=== PATIENT | female | born 1940 | race Caucasian/White ===

== ENCOUNTER → 2018-02-27 08:35 | Outpatient (CLI) | payer MEDICARE, OTHER, SELFPAY ==
--- NOTE | 2018-02-27 08:30 | DI.REPORT_ITS ---
SYMPTOM/DIAGNOSIS: RT TKA RIGHT KNEE, AND LONG LEG LENGTH: Comparison examination is 12/11/17. There are now post surgical changes of a right total knee replacement. The orthopaedic hardware appears in good position. No fractures identified. In the left knee there is marked narrowing of the medial femoral tibial joint space with flattening of the articular surfaces, subchondral sclerosis and osteophyte formation. There also is a varus deformity noted. Mild degenerative changes are seen of the right hip with joint space narrowing, subchondral sclerosis and sofia-articular spurring. The right lower extremity measures 87.2 cm The left lower extremity measures 85.8 cm. IMPRESSION: 1. Right TKR 2. Marked degenerative changes involving the left knee.
== END ==
PROVIDERS: PCP Nurse Practitioner; Visit Provider Physician Assistant
DX: Z47.1 Aftercare following joint replacement surgery (principal); Z96.651 Presence of right artificial knee joint; M21.962 Unspecified acquired deformity of left lower leg; M17.12 Unilateral primary osteoarthritis, left knee
CPT/HCPCS: 73560; 77073

== ENCOUNTER 2018-03-20 14:30 | Outpatient (RCR) | payer MEDICARE, OTHER, SELFPAY ==
--- NOTE | 2018-03-06 08:49 | PTTR_ITS ---
DATE: 03/06/18 SUBJECTIVE: Deidre states that her knee has been feeling great. She followed by with Dr. Pierre last week and scheduled her (L) knee replacement for April 02. She is performing her exercises daily and feels that they are helping. She has not used her walker since her last session and she has been walking around more at home stating that she has been going down to the barn and watching her grandchildren again. She states that she does feel a little unsteady walking down hill and tends to use a walking stick when she does. She also reports that she feels this is more due to her (L) knee than her (R). OBJECTIVE: Therapeutic procedures ([id number]). We review pt HEP and she required cues for appropriate technique with SLR which we progressed to a 10 sec hold with slow eccentric lowering and no rest periods between. She was instructed in progressed closed chain strengthening and balance retraining activities which can be found in scanned documents. She does require significant verbal and tactile cues for appropriate completion and squatting activities but with good carry over. (R) knee ROM Allows 119* flexion without pain. Direct treatment time: 25 minutes Total treatment time: 25 minutes ASSESSMENT/ PLAN: Will follow up in 2 weeks for re-evaluation and progression. Pt is doing excellent for 3 weeks post op. And we will plan to have her continue with a fairly (I) program as she awaits her (L) knee replacement in March.
--- NOTE | 2018-03-20 14:30 | PTDS_ITS ---
Date: March 20 Referring: Jori Pierre MD Diagnosis: S/p R TKA 02/12/18 PT Dx: Same Treatment dates: 02/22/18 to 03/20/18 Subjective: History of Present Illness: Deidre states that her R knee has been feeling great. She has been doing her exercises regularly and feels that her knee is doing excellent. She states she has been able to kneel on the floor with only significant difficulty. She has resumed care taking for her grand children, denies difficulty with stairs. She is looking forward to her L knee replacement in 2 weeks. Standardized Measures: [] Objective: Posture: Patient continues to demonstrate significant L genu varus. She lacks terminal knee extension on the R. Gait: Continued antalgia related to decreased stance time on the L, patient also demonstrates hyper extension of the L knee during stance phase. ROM: Patient demonstrates 0 to 125 degrees of R knee flexion, denying pain. Strength: Good functional quad strength and patient can demonstrate SLR without extension lag and squatting activities without difficulty. Treatment: Treatment today consisted of review of patient's HEP. She was instructed in passive hangs for knee extension to facilitate continued extension in the presence of functional leg length discrepancy due to severe osteoarthritis in her L knee. She has been encouraged to continue with her HEP. Therapeutic Procedure [id number] Treatment Time: 15 mins Assessment: Patient is a 78 year old female participating in PT services for rehabilitation following a R TKA. She is now 5 weeks post op and has demonstrated excellent improvements in functional mobility and comfort. Her ROM is full and she demonstrates good functional strength. 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 At this point she is appropriate for discharge to an independent HEP. I anticipate she will require a 2nd round of PT intervention after her next surgery. G-Codes: Patient demonstrates improvements in mobility, walking and moving around with projected status of [id number] based on clinical judgement with discharge status of [id number] STG: __6__ weeks. 1. (R) knee ROM 0-120* (MET) 2. Pt able to resume care for her grandchildren (MET) LTG: __12__ weeks. 1. Reciprocal stair management (MET) 2. Improve overall function as indicated by LEFS score of less than 10% deficit. (Not assessed at today's visit) Plan: Discharge to [facility] as patient awaits L TKA 04/02/18. SS/dl *Dr. Pierre, please sign this discharge summary if you are in agreement with this plan. cc: Jori Pierre MD
== END 2018-03-29 23:59 | disposition home or self-care (01) ==
LOC: PT 14:30
PROVIDERS: PCP Nurse Practitioner; Referring Provider Physician Assistant; Visit Provider Physician Assistant
DX: Z47.1 Aftercare following joint replacement surgery (principal); Z96.651 Presence of right artificial knee joint
CPT/HCPCS: 97110

== ENCOUNTER → 2018-03-29 10:09 | Outpatient (CLI) | payer MEDICARE, OTHER, SELFPAY ==
[2018-03-29 11:23] LABS: HCT 35.4 % (36.0-46.0); HGB 11.6 g/dL (12.0-15.5); Mean Corp. HGB Concentration 32.8 g/dL (32.0-36.0); Mean Corpuscular Hemoglobin 30.1 pg (27.0-33.0); Mean Corpuscular Volume 91.7 fL (80-95); Mean Platelet Volume 9.6 fL (8.0-11.0); Platelet Count 298 x1000/uL (130-400); RBC 3.86 m/cumm (4.00-5.20); RBC Distribution Width 13.5 % (11.7-14.6); White Blood Cell Count 7.24 k/cumm (4.4-10.8)
[2018-03-29 12:37] LABS: Anion Gap 7.7 mmol/L (3-11); BUN 16 mg/dL (7-18); CO2 27.3 mmol/L (21.0-32.0); CREATININE 0.86 mg/dL (0.55-1.02); Calcium 8.7 mg/dL (8.5-10.1); Chloride 102 mmol/L (98-107); Glucose 85 mg/dL (70-100); Potassium 4.3 mmol/L (3.5-5.1); Sodium 137 mmol/L (136-145)
== END ==
PROVIDERS: PCP Nurse Practitioner; Visit Provider Student in an Organized Health Care Education/Training Program
DX: Z01.818 Encounter for other preprocedural examination (principal); M25.562 Pain in left knee
CPT/HCPCS: 36415; 80048; 85027

== ENCOUNTER → 2018-04-02 10:28 | Outpatient (BNVA) | payer MEDICARE, SELFPAY ==
[2018-04-02 15:52] VITALS: BP 129/78; PULSE 70; RESP 18; TEMP 36.3; O2SAT 95
--- NOTE | 2018-04-02 16:02 | PT.INIE ---
PT Notes Date: 04/02/18 Referring Doctor: Jori Pierre PT Orders: PT Consult s/p L TKA Precautions: WBAT L LE PATIENT PROFILE/ADMITTING DIAGNOSIS: Pt is a 78yr old female s/p left total knee arthroplasty by Dr. Pierre 04/02/18 PMHX: degenerative joint disease bilateral knees, hernia repair Social History/Home Situation: Lives in a house with her daughter, 4 steps with railing to enter, no steps inside. Baseline mobility independent gait with no device, independent with ADLS Equipment owned/DME: FWW, commode SUBJECTIVE: Pt lying in bed, agreeable to PT consult. Reports feeling lightheaded and nausous. OBJECTIVE: General Observation: IV R UE, taylor catheter, cryocuff L knee, sylvester wrap L LE Mental Status: A& O x3 Pain: no c/o pain BED MOBILITY/TRANSFERS: Supine-sit: HOB 30 independent Sit-stand: SBA with FWW Stand-sit: SBA sit-supine: HOB flat, independent GAIT: SBA with FWW 4 side steps at bedside, WBAT R LE, gait limited by lightheadedness/nausea. Pt back to bed after standing at bedside THEREX Pt instructed in LE therex program, Performed ankle pumps, hip flexion x 10 reps LAQ x 10reps BALANCE: Static sitting normal Dynamic Sitting normal Static Standing fair Dynamic Standing fair SPECIAL TESTS: Mobility Limitations Standardized Measure [facility] AM -PAC ?6 clicks? Basic Mobility Inpatient Short Form: raw score: 18 standardized score: 43.63 CMS score: 46.58% CMS modifier: CK INFORMED CONSENT/EDUCATION: Pt instructed in purpose of PT Consult and plan of care ASSESSMENT: Pt is a 78yr old female s/p left total knee arthroplasty by Dr. Pierre 04/02/18 in setting of degenerative joint disease bilateral knees. Patient presents with clinical signs and symptoms consistent with post op day 1 TKA as demonstrated by the following impairment level findings: decreased ROM L knee, decreased quad strength L LE, decreased strength with standing transfers and gait requiring FWW for gait stability post operatively due to quad weakness left and right LE's and decreased static and dynamic standing balance. Pt will benefit from skilled therapy intervention for progressive strengthening and mobility training. Impairments are contributing to the following functional limitations: AMPAC score CMS score: 46.58% Patient is assessed as a * Moderate 79062 complexity based on the following: History: s/p L TKA 04/02/18, s/p right total knee arthroplasty by Dr. Pierre 02/12/18 in setting of degenerative joint disease bilateral knees. Examination: decreased ROM L knee, decreased quad strength L LE, decreased strength with standing transfers and gait requiring FWW for gait stability post operatively due to quad weakness left and right LE's and decreased static and dynamic standing balance. Presentation: evolving Decision Making: AMPAC score CMS score: 46.58% GOALS Goals x1 week 1. Supine-sit: independent 2. Sit-Supine: independent 3. Sit-Stand: supervision with FWW 4. Stand-sit: supervision 5. Bed-chair SBA with FWW 6. Chair-bed SBA with FWW 7. Gait SBA with FWW 75ftx2, WBAT L LE 8. Stairs: up/down 4 steps with railing, SBA W BAT L LE 9. I with home exercise program for L TKA PLAN OF CARE/TREATMENT PLAN: 1-2x/day, 7 days/ week x 1 week Plan of care has been reviewed with the BALE STACKER providing the service under Physical therapy direction. Initiate physical therapy intervention for strengthening, bed mobility, transfers, gait, stairs, balance training, use of assistive device. DISCHARGE RECOMMENDATIONS Home, has all DME TREATMENT TIME/MINUTES/CODES 24 min IE 1600 G Codes in the area mobility of walking and moving around: current status [id number] projected status GP [id number] . Discharge status (if discharging) GP [id number]__[id number] iwfwe on AMPAC score CMS score: 46.58% Lisha Peralta PT Intake Vital Signs 04/02/18 15:52 BP 129/78 Respiration 18 Pulse 70 Temp 36.3 C L Temp Source Tympanic Pulse Oximetry (%) 95 Oxygen Flow Rate 0
--- NOTE | 2018-04-02 16:07 | IN_ITS ---
PT Notes Date: 04/02/18 Referring Doctor: Jori Pierre PT Orders: PT Consult s/p L TKA Precautions: WBAT L LE PATIENT PROFILE/ADMITTING DIAGNOSIS: Pt is a 78yr old female s/p left total knee arthroplasty by Dr. Pierre 04/02/18 PMHX: degenerative joint disease bilateral knees, hernia repair Social History/Home Situation: Lives in a house with her daughter, 4 steps with railing to enter, no steps inside. Baseline mobility independent gait with no device, independent with ADLS Equipment owned/DME: FWW, commode SUBJECTIVE: Pt lying in bed, agreeable to PT consult. Reports feeling lightheaded and nausous. OBJECTIVE: General Observation: IV R UE, taylor catheter, cryocuff L knee, sylvester wrap L LE Mental Status: A& O x3 Pain: no c/o pain BED MOBILITY/TRANSFERS: Supine-sit: HOB 30 independent Sit-stand: SBA with FWW Stand-sit: SBA sit-supine: HOB flat, independent GAIT: SBA with FWW 4 side steps at bedside, WBAT R LE, gait limited by lightheadedness/nausea. Pt back to bed after standing at bedside THEREX Pt instructed in LE therex program, Performed ankle pumps, hip flexion x 10 reps LAQ x 10reps BALANCE: Static sitting normal Dynamic Sitting normal Static Standing fair Dynamic Standing fair SPECIAL TESTS: Mobility Limitations Standardized Measure [facility] AM -PAC ?6 clicks? Basic Mobility Inpatient Short Form: raw score: 18 standardized score: 43.63 CMS score: 46.58% CMS modifier: CK INFORMED CONSENT/EDUCATION: Pt instructed in purpose of PT Consult and plan of care ASSESSMENT: Pt is a 78yr old female s/p left total knee arthroplasty by Dr. Pierre 04/02/18 in setting of degenerative joint disease bilateral knees. Patient presents with clinical signs and symptoms consistent with post op day 1 TKA as demonstrated by the following impairment level findings: decreased ROM L knee, decreased quad strength L LE, decreased strength with standing transfers and gait requiring FWW for gait stability post operatively due to quad weakness left and right LE's and decreased static and dynamic standing balance. Pt will benefit from skilled therapy intervention for progressive strengthening and mobility training. Impairments are contributing to the following functional limitations: AMPAC score CMS score: 46.58% Patient is assessed as a * Moderate 45501 complexity based on the following: History: s/p L TKA 04/02/18, s/p right total knee arthroplasty by Dr. Pierre in setting of degenerative joint disease bilateral knees. Examination: decreased ROM L knee, decreased quad strength L LE, decreased strength with standing transfers and gait requiring FWW for gait stability post operatively due to quad weakness left and right LE's and decreased static and dynamic standing balance. Presentation: evolving Decision Making: AMPAC score CMS score: 46.58% GOALS Goals x1 week 1. Supine-sit: independent 2. Sit-Supine: independent 3. Sit-Stand: supervision with FWW 4. Stand-sit: supervision 5. Bed-chair SBA with FWW 6. Chair-bed SBA with FWW 7. Gait SBA with FWW 75ftx2, WBAT L LE 8. Stairs: up/down 4 steps with railing, SBA W BAT L LE 9. I with home exercise program for L TKA PLAN OF CARE/TREATMENT PLAN: 1-2x/day, 7 days/ week x 1 week Plan of care has been reviewed with the CRIPPLE WORKER providing the service under Physical therapy direction. Initiate physical therapy intervention for strengthening, bed mobility, transfers, gait, stairs, balance training, use of assistive device. DISCHARGE RECOMMENDATIONS Home, has all DME TREATMENT TIME/MINUTES/CODES 24 min IE 1600 G Codes in the area mobility of walking and moving around: current status [id number] projected status GP [id number] . Discharge status ( if discharging) GP [id number]__CL wutxs on AMPAC score CMS score: 46.58% Lisha Peralta PT Intake Vital Signs 3 l l l l 04/02/18 15:52 l l BP 129/78 l l Respiration 18 l l Pulse 70 l l Temp 36.3 C L l l Temp Source Tympanic l l Pulse Oximetry (%) 95 l l Oxygen Flow Rate 0
== END ==
PROVIDERS: PCP Nurse Practitioner; Visit Provider Student in an Organized Health Care Education/Training Program
DX: M17.12 Unilateral primary osteoarthritis, left knee (principal); Z96.652 Presence of left artificial knee joint; Z96.651 Presence of right artificial knee joint; M21.162 Varus deformity, not elsewhere classified, left knee

== ENCOUNTER 2018-04-02 13:42 | Inpatient (IN) | payer MEDICARE, OTHER, SELFPAY ==
[2018-04-02] VITALS (10 sets, daily range): BP systolic 107–139; BP diastolic 68–84; PULSE 65–79; RESP 11–19; TEMP 36–36.9; O2SAT 95–99
[2018-04-02] MEDS: Lactated Ringers 1,000 ML 80 ML IV ×4 (09:57→22:55)
[2018-04-02] MEDS: Gabapentin 300 MG CAP PO (10:04)
[2018-04-02] MEDS: Acetaminophen 500 MG TAB 1000 MG PO (10:04)
[2018-04-02] MEDS: Celecoxib 200 MG CAP 400 MG PO (10:04)
[2018-04-02] MEDS: Ketorolac 30 MG/ML VIAL (13:07)
[2018-04-02] MEDS: Bupivacaine 0.25% Pres-Free 30 ML VIAL 60 ML (13:07)
[2018-04-02] MEDS: Normal Saline 50 ML (13:07)
[2018-04-02] MEDS: Bupivacaine 0.5% Pres-Free 30 ML VIAL (13:53)
--- NOTE | 2018-04-02 18:54 | W.PM.OP ---
Date of service: 04/02/18 Time of Service: 14:00 Operative Note Date of procedure: 04/02/18 Pre-op diagnosis: Left Knee Arthritis Post-op diagnosis: same Procedure: Left Total Knee Arthroplasty with Intraoperative Navigation Surgeon: Jori Pierre Sorting Grapple Operator: Robyn Higginbotham Anesthesia: regional and spinal Estimated blood loss (mL): 400 Pathology: none sent Tourniquet time (min): 41 Complications: None Patient was transported to: PACU Patient's condition: stable Implants: 1. Depuy Attune Posterior Stabilized Femoral Component, Size 6 2. Depuy Attune Fixed Platform Tibial Component, Size 4 3. Depuy Attune 6 x 8 mm fixed, Stabilized Poly 4. Depuy Attune Patellar Component, Size 35 mm Indications: I have seen Deidre in clinic for symptoms of knee arthritis, confirmed with radiographic findings. She has exhausted nonoperative methods and was having significant limitations in daily function and desired better function and less pain. I discussed the technical details of a knee replacement. I explained the risks of the procedure to include, but not limited to, bleeding, infection, pain, stiffness, fracture, damage to nerves and vessels, damage to muscles and tendons, loosening, need for repeat procedure, blood clot and cardiopulmonary demise. Despite these risks, she elected to proceed. Findings: There was significant signs of arthritis throughout the knee. All 3 compartments were involved. There is large deformity and osteophyte seen throughout. Procedure Description: Deidre was greeted in the preoperative holding area where the correct side was identified and marked. The consent was reviewed with the patient and signed. The history and physical was updated. All questions were answered. Preoperative mediacations were administered: Acetaminophen 1000mg, Celebrex 400mg, Gabapentin 300mg, and Oxycontin 10mg. An adductor canal block was then administered by the anesthesia team in the PACU. She was taken back to the operating room. A spinal anesthestic was then administered. The patient was placed into the supine position on the operating room table. A nonsterile tourniquet was placed high onto the leg but only used for cementing. Posts were placed for positioning during the procedure. All bony prominences were well padded. Prophylactic antibiotics in the form of Cefazolin were administered. 1g of Tranxemic Acid was given intravenously within 30 minutes of incision. The left leg was then prepped with Chloraprep and draped in a standard fashion with impervious stockinette and extremity drape with Iodine impregnated skin protection. A timeout to confirm correct identity, side and site, procedure, allergies, anesthesia, and medical concerns was performed. With the knee in some flexion, a midline incision was made overlying the knee. Full thickness skin flaps were raised once the extensor mechanism was encountered. These were raised medially and laterally. Any bleeding was controlled with electrocautery. Once the extensor mechanism was fully exposed, a medial parapatellar arthrotomy was performed in a flexed position. All bleeding from the arthrotomy and the geniculate arteries was coagulated. A medial subperiosteal peel was performed with electrocautery to the midcoronal plane. Due to the significant varus deformity the entire medial tibial plateau was exposed. The fat pad was removed while keeping the patellar tendon protected. The anterior distal femur synovium was removed for later visualization. The ACL and PCL were resected and the anterior horn of the lateral meniscus was transected. The knee was then flexed with the patella everted. Large osteophytes from the tibia were removed. Large osteophytes from the femur were removed. A single starting pin was then placed 1cm anterior to the PCL insertion and the notch in the direction of the femoral head. The OrthoAlign device was applied over the pin. It was oriented to be in line with the epicondylar axis and the trochlear groove. It was then pinned into place. The navigation computer was then turned on and calibrated. The distal femur cut was set at 0 degrees varus/valgus and 2.5 degrees flexion. The distal femur cutting guide then was positioned for a 9mm cut. The distal femur was cut with an oscillating saw while protecting the soft tissues. The tibia was then addressed. The OrthoAlign device was placed over the tibial tubercle and medial tibia and secured into position. Once again, OrthoAlign was calibrated and then set for a 0.5? varus cut and 3 degrees of posterior slope. With this locked into position, the cut thickness stylus was used to assess cut thickness. The medial side, most involved side, was set for a 2mm cut. This was then held in position and pinned into place with 2 additional pins and a cross pin for stability. The medial and lateral collateral ligaments were protected and the cut was performed. With this completed, it was assessed and noted to be of appropriate dimensions. The guide and OrthoAlign was removed. A spacer block was inserted and the knee was brought into extension. The 6 mm spacer block provided full extension, without hyperextension. There was some asymmetric laxity laterally when compared to the medial side. The MCL was extremely tight. The entire medial periphery of the tibial plateau was released and all osteophytes were removed. Using an 11 blade I then pie crusted the MCL to help relax the medial side. With an [address], I have stability of both the medial and lateral collateral ligaments. The pins from the femur and the tibia were then removed. The distal femur was then sized. The anterior stylus was placed onto the lateral ridge of the anterior femur. This indicated a size 6 femur. The external rotation of the guide was adjusted to 7? to match the epicondylar axis, perpendicular to Emmett?s line. The 4-in-1 cutting guide was the placed. The posterior medial femur cut was evaluated and appeared of good thickness. The spacer block was inserted underneath the cutting guide and stability was confirmed in 90 degrees of flexion. An melissa wing was used to confirm appropriate position of the anterior cut to avoid notching. This cutting guide was ensured to be flush on the cut surface and then pinned into place with headed pins. While protecting the soft tissues, quad tendon, and collateral ligaments, the anterior and posterior cuts were performed with a saw. The central two pins were removed and the posterior and anterior chamfers were cut next. The notch-cutting guide was placed. This was pinned to lateralize the femoral component as much as possible while keeping it flush on the cut surface. This was then pinned into position. A reciprocating saw was used to make the notch cut. A rasp smoothed the cut surfaces. A trial posterior stabilized femoral component was then inserted, impacted down to the cut surfaces, and the lug holes were drilled. A provisional trial tibial component was placed and the knee was brought through range of motion. There was noted to be excellent extension and flexion. There was no significant instability. The patella was tracking without thumbs. The tibial cut surface was fully exposed. The medial and lateral menisci were removed. The tibia was then sized as a 4. The tibia had been previously marked during trialing to correspond to the center of the tibial component to help with rotation. The trial was aligned to this mayela, approximately rotated to the medial 1/3rd of the tibial tubercle. The trial was pinned into place. The tibia was prepared with a reamer and a keel punch. The knee was then brought into extension and the patella was measured as 26 mm. Using the patellar clamp and cut guide, this was resected to a flat surface with at least 13mm of thickness remaining. The size 35 mm patella fit the best. This was oriented and then clamped into position. The lugs were drilled. The trial components were removed. The final components, except for the polyethylene were opened on the back table. The periosteal and capsular tissues around the knee were then systematically injected with a periarticular cocktail consisting of 50cc 0.25% Marcaine, 30mg Ketorolac, 20cc of Exparal and 50cc of injectable saline. The tourniquet was then inflated to 275mmHg. The knee was thoroughly irrigated with a pulse lavage and dried. On the back table, with the implants opened, the cement was mixed. 2 batches of antibiotic laden cement were prepared with vacuum assistance. After the cement was ready a small amount was placed on to the back side of the tibial component at the keel. A small amount was placed onto the posterior flange of the femur. Cement was manual pressurized and impregnated into the cut surface of the tibia. The tibial component was then inserted into the cut surface and impacted into position. Excess cement was removed and the component was reimpacted. Again, excess cement was removed and our attention was then turned to the femur. The femoral cut surface was once again dried and cement was manually impacted into the cut surface. The femoral component was lined with the lug holes and impacted. Excess cement was removed. It was ensured to be down against the cut surface. The trial polyethylene was then inserted and the leg was brought out into full extension for the duration of the cement curing process, approximately 15min. Cement was lastly manually impacted into the cut surface of the patella and the patellar button was clamped into position and held. During this process attention was turned to the gutters of the knee and for all interfaces for any excess cement. After the cement had finally cured, approximately 15min, the clamp was removed from the patella and the knee was taken through range of motion. A size 8 mm polyethylene component provided the best range of motion and stability with less than 2mm gapping with medial and lateral stress and full extension without significant hyperextension. The patella was tracking with a no-thumbs technique. The trial poly was removed and once again the knee was checked for any loose, excess, or errant cement. The poly component was then inserted and impacted into position after cleaning and drying the tibial tray. The capsule was then reapproximated with a No. 1 Vicryl at multiple locations. The capsule was finally closed with a No. 2 Stratafix, barbed suture. The tourniquet was then released and the arthrotomy appeared watertight. The second dosing of 1g TXA was started. Deep tissues were then reapproximated with 0 Vicryl and 2-0 Vicryl. The skin was closed with a running 3-0 Monocryl in a subcuticular fashion. This was reinforced with skin glue. A Mepilex silver dressing was applied along with a [id number] JAI wrap. A CryoCuff was applied. Deidre was transferred to the hospital bed without difficulty an suffering no apparent complication. She has a good prognosis. Physical therapy will start today and without restrictions, weight-bearing as tolerated. Aspirin 81mg BID will be used for DVT prophylaxis.
[2018-04-02] MEDS: Celecoxib 100 MG CAP 200 MG PO (20:01)
[2018-04-02] MEDS: Aspirin E.C. 81 MG TABEC PO (20:02)
[2018-04-03] VITALS: BP 100/65; PULSE 73; RESP 18; TEMP 36.5; O2SAT 97
[2018-04-03] MEDS: traMADol 50 MG TAB PO (02:00)
[2018-04-03 03:55] VITALS: BP 106/67; PULSE 71; RESP 16; TEMP 37.1; O2SAT 97
[2018-04-03 07:09] LABS: HCT 28.1 % (36.0-46.0); HGB 9.2 g/dL (12.0-15.5); Mean Corp. HGB Concentration 32.7 g/dL (32.0-36.0); Mean Corpuscular Hemoglobin 30.2 pg (27.0-33.0); Mean Corpuscular Volume 92.1 fL (80-95); Mean Platelet Volume 9.4 fL (8.0-11.0); Platelet Count 243 x1000/uL (130-400); RBC 3.05 m/cumm (4.00-5.20); RBC Distribution Width 13.2 % (11.7-14.6); White Blood Cell Count 11.19 k/cumm (4.4-10.8)
[2018-04-03 07:21] LABS: Anion Gap 4.1 mmol/L (3-11); BUN 12 mg/dL (7-18); CO2 27.9 mmol/L (21.0-32.0); CREATININE 0.93 mg/dL (0.55-1.02); Calcium 7.9 mg/dL (8.5-10.1); Chloride 104 mmol/L (98-107); Estimated GFR 58.46 (mL/min/1.73m2); Glucose 92 mg/dL (70-100); Sodium 136 mmol/L (136-145)
[2018-04-03 07:37] VITALS: BP 115/69; PULSE 66; RESP 16; TEMP 36; O2SAT 97
[2018-04-03] MEDS: Normal Saline Flush 10 ML SYR IV (08:00)
--- NOTE | 2018-04-03 08:06 | PDOC.CMIN ---
- If Service Date Differs Date of service: 04/03/18 Time of Service: 08:06 Care Management Initial Assess REASON FOR HOSPITALIZATION:: Left Knee DJD. PAST MEDICAL HISTORY/PAST SURGICAL HISTORY:: Osteoarthritis. PREVIOUS FUNCTIONAL STATUS/SOCIAL/FAMILY SUPPORTS:: Deidre lives with her daughter and son in law and their two young children in a private home in [place]. Her from brain cancer 3 years ago. She has 12 adult children, several of whom live locally and are very supportive. 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 CURRENT FUNCTIONAL STATUS:: Deidre was lying in bed when CM visted this morning. She is engaged in conversation, is talkative and makes good eye contact. Deidre reports that she is feeling great and is ready to go home. She had surgery on her right knee in January and reports that she knows what to expect. ontact and is talkative. She reports that she is independent with ADLs and transporation and that she has a great support system with her many children and friends. Deidre denies concerns about returning home and reports that she has all necessary equipment that is left over from pt's that she cared for previously in her home and her past surgery. ADVANCE DIRECTIVES:: On file at [facility]. Has patient been provided with information about the portal?: No Did the patient sign up for the portal?: No CODE STATUS:: Full Code INSURANCE COVERAGE / FINANCIAL ISSUES:: Medicare, [employer]. CURRENT HOME/COMMUNITY SERVICES/EQUIPMENT:: No current services. Deidre has a walker and commode at home. No additional equipment needed. PRIMARY CARE PHYSICIAN:: Tiffany Baumann. POTENTIAL DISCHARGE NEEDS:: Follow up appointment with MD. Outpatient PT services. PATIENT/FAMILY EDUCATION NEEDS:: Discharge education, any limitations and follow up plan of care. Ask Me Three discussion. ANTICIPATED BARRIERS TO DISCHARGE:: No anticipated barriers to discharge. TRANSPORTATION:: Deidre will transport via private vehicle with her son-in-law, Emory. PLAN:: Deidre will discharge home when medically ready per MD. Anticipate pt will discharge home with no services, follow up appointment with MD and out patient PT. CM to continue to provide support, discharge planning and disposition. Readmission - Within the Past 30 Days Yes or No: N
--- NOTE | 2018-04-03 08:14 | INITIAL_ITS ---
- If Service Date Differs Date of service: 04/03/18 Time of Service: 08:06 Care Management Initial Assess REASON FOR HOSPITALIZATION:: Left Knee DJD. PAST MEDICAL HISTORY/PAST SURGICAL HISTORY:: Osteoarthritis. PREVIOUS FUNCTIONAL STATUS/SOCIAL/FAMILY SUPPORTS:: Deidre lives with her daughter and son in law and their two young children in a private home in [place]. Her from brain cancer 3 years ago. She has 12 adult children, several of whom live locally and are very supportive. 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 CURRENT FUNCTIONAL STATUS:: eDidre was lying in bed when CM visted this morning. She is engaged in conversation, is talkative and makes good eye contact. Deidre reports that she is feeling great and is ready to go home. She had surgery on her right knee in January and reports that she knows what to expect. ontact and is talkative. She reports that she is independent with ADLs and transporation and that she has a great support system with her many children and friends. Deidre denies concerns about returning home and reports that she has all necessary equipment that is left over from pt's that she cared for previously in her home and her past surgery. ADVANCE DIRECTIVES:: On file at [facility]. Has patient been provided with information about the portal?: No Did the patient sign up for the portal?: No CODE STATUS:: Full Code INSURANCE COVERAGE / FINANCIAL ISSUES:: Medicare, [employer]. CURRENT HOME/COMMUNITY SERVICES/EQUIPMENT:: No current services. Deidre has a walker and commode at home. No additional equipment needed. PRIMARY CARE PHYSICIAN:: Tiffany Baumann. POTENTIAL DISCHARGE NEEDS:: Follow up appointment with MD. Outpatient PT services. PATIENT/FAMILY EDUCATION NEEDS:: Discharge education, any limitations and follow up plan of care. Ask Me Three discussion. ANTICIPATED BARRIERS TO DISCHARGE:: No anticipated barriers to discharge. TRANSPORTATION:: Deidre will transport via private vehicle with her son-in-law , Emory. PLAN:: Deidre will discharge home when medically ready per MD. Anticipate pt will discharge home with no services, follow up appointment with MD and out patient PT. CM to continue to provide support, discharge planning and disposition. Readmission - Within the Past 30 Days Yes or No: N
[2018-04-03] MEDS: Aspirin E.C. 81 MG TABEC PO (08:16)
[2018-04-03] MEDS: Pantoprazole 40 MG TABCR PO (08:16)
[2018-04-03] MEDS: Lactobacillus Acidophilus CAP 1 CAP PO (08:16)
[2018-04-03] MEDS: Celecoxib 100 MG CAP 200 MG PO (08:16)
[2018-04-03] MEDS: Multivitamin w/Minerals TAB 1 TAB PO (08:17)
--- NOTE | 2018-04-03 08:17 | PDOC.CMDIS ---
- If Service Date Differs Date of service: 04/03/18 Time of Service: 08:17 LACE Index Scoring Tool - Questions: Length of Stay (in days): 2 Acuity (Admit via E.D.?): No E.D. Visits: 0 - Answers: Total Score: 2 Risk of Readmission: Low Risk Care Management Discharge Reason for Hospitalization: Left Knee DJD. Discharge Plan: Deidre will discharge home when medically ready per MD. Anticipate pt will discharge with outpatient PT services and will follow up with MD. She will transport via private vehicle with her son-in-law, Emory. Patient/Family Education Needs: Review discharge instructions and any limitations. Ask Me Three discussion.
--- NOTE | 2018-04-03 08:22 | PT.INDS ---
PT Notes Inpatient Physical Therapy Discharge Summary Date: 04/03/18 Dates of Service: 04/02/18-04/03/18 SUBJECTIVE: Pt lying in bed, states she walked 2 loops around the unit last night. She is eager to go home today. Agreeable to PT session prior to discharge. OBJECTIVE: General Observation: IV R UE, taylor catheter, cryocuff L knee, sylvester wrap L LE Pain: no c/o pain BED MOBILITY/TRANSFERS: Supine-sit: independent Sit-stand: independent with FWW Stand-sit: independent sit-supine: independent Bed-chair: independent with FWW GAIT: indepednent with FWW 70ftx2 WBAT R LE STAIRS Instructed in up/down 4 steps with right railing, independent WBAT R LE THEREX Pt instructed in LE therex program, Performed ankle pumps, hip flexion x 10 reps LAQ x 10reps BALANCE: Static sitting normal Dynamic Sitting normal Static Standing fair Dynamic Standing fair ASSESSMENT: Pt is a 78yr old female s/p left total knee arthroplasty by Dr. Pierre 04/02/18 in setting of degenerative joint disease bilateral knees. Patient was seen for 2 PT sessions. Progressed from SBA standing transfers to independent, from SBA gait with FWW 4 steps to independent gait with FWW 70ftx2, able to ascend/descend 4 steps independently. Pt has met therapy goals and is ready for discharge to home setting. GOALS Goals x1 week 1. Supine-sit: independent 2. Sit-Supine: independent 3. Sit-Stand: supervision with FWW 4. Stand-sit: supervision 5. Bed-chair SBA with FWW 6. Chair-bed SBA with FWW 7. Gait SBA with FWW 75ftx2, WBAT L LE 8. Stairs: up/down 4 steps with railing, SBA W BAT L LE 9. I with home exercise program for L TKA Pt met goals # 1-9 DISCHARGE RECOMMENDATIONS Home, has all DME TREATMENT TIME/MINUTES/CODES 24 min TAx1 TP x1 8:20 G Codes in the area mobility of walking and moving around:projected status GP [id number] . Discharge status (if discharging) GP [id number]__[id number]__ Lisha Peralta PT
--- NOTE | 2018-04-03 09:49 | DSE_ITS ---
Discharge Plan Discharge Details Reason For Visit: (L) KNEE DJD Admit Date/Time: 04/02/18 13:42 Admit Provider: Jori Pierre Attending Provider: Jori Pierre Primary Care Provider: Tiffany Baumann Disposition Patient Disposition: HOME Condition: Good Hosptial Course Hospital Course: Patient was admitted to the medical/surgical floor following the procedure. It was tolerated well without any notable medical, surgical, or anesthetic complications. Mobilization began postoperatively. The taylor catheter was removed and voiding spontaneously. Vitals were stable. Physical therapy worked with the patient and was cleared for discharge home. No acute medical issues. Home Meds and New Rx's Prescriptions: Continue omega-3 fatty acids 100 MG tablet,chewable 100 mg PO DAILY RF: 0 Lactobacillus acidophilus [Probiotic] 1 EACH capsule 1 ea PO DAILY RF: 0 [id number]-Nx-ghsn-minerals [Women's Daily Formula] 1 EACH tablet 1 ea PO DAILY RF: 0 aspirin 81 MG tablet,delayed release (DR/EC) 81 mg PO BID Qty: 80 RF: 0 pantoprazole 40 MG tablet,delayed release (DR/EC) 40 mg PO DAILY@0730 Qty: 30 RF: 0 celecoxib [Celebrex] 100 MG capsule 100 mg PO BID Qty: 60 RF: 2 polyethylene glycol 3350 17 GM powder in packet 17 gm PO BID PRN PRN (Reason: Constipation) RF: 0 tramadol 50 MG tablet 50 mg PO Q4H PRN PRN (Reason: Pain) Qty: 12 RF: 0 acetaminophen [Mapap Extra Strength] 500 MG tablet 500 mg PO Q6H PRN PRNQty: 100 RF: 3 docusate sodium [Colace] 100 MG capsule 100 mg PO BID PRN PRN (Reason: Constipation) RF: 0 Discontinued diclofenac sodium 100 GM gel 1 applic Topical BID PRNQty: 100 RF: 3 ondansetron 4 MG tablet,disintegrating 4 mg PO Q8H PRN PRNQty: 6 RF: 0 Discharge Instructions Additional Instructions: Dr. Pirere?s Total Knee Discharge Instructions Activity: The most important activity is to walk. You should try to take short walks a few times a day. It is important that when resting you work on keeping the knee straight. Avoid putting a pillow behind the knee as this will encourage flexion. Work on range of motion exercises as provided by Physical Therapy. - Start outpatient physical therapy within 2 weeks. - You should wear the IBAN hose on both legs for 4 weeks. Dressing: Keep the surgical dressing in place for at least one week. After the first week it may be removed and replace with light gauze and tape or nothing. It may get wet after 3 days but avoid soaking the dressing. If it gets wet, just lightly pat dry. Medications: - You should take Tylenol and anti-inflammatory Celebrex as your primary pain control medications - You have not been prescribed any stronger medication this time, but if you need something stronger, please contact Dr. Pierre - You will be taking Aspirin 81mg twice a day for DVT prevention unless instructed otherwise. - If you have constipation you should take Colace or Miralax (both over-the- counter). It takes most people 3-4 days to have a bowel movement. Follow-up: 2 weeks Activity:: Activity as Tolerated Equipment/Supplies:: Walker Diet:: As Tolerated Discharge Orders Discharge Orders: Discharge Order (Routine); Ordered 04/03/18 Ordered By: Jori Pierre DS: Data Completed studies during hospitalization [Text1]: Procedures Bed Mobility Treatment using Assistive, Adaptive, Supportive or Protective Equipment (02/12/18) Computer Assisted Procedure of Lower Extremity (02/12/18) Gait Training/Functional Ambulation Treatment using Assistive, Adaptive, Supportive or Protective Equipment (02/12/18) Introduction of Anesthetic Agent into Peripheral Nerves and Plexi, Percutaneous Approach (02/12/18) Replacement of Right Knee Joint with Synthetic Substitute, Cemented, Open Approach (02/12/18) Transfer Training Treatment using Assistive, Adaptive, Supportive or Protective Equipment (02/12/18) Labs on day of discharge: Labs from last 24 hours 04/03/18 04/03/18 07:00 07:00 WBC 11.19 H RBC 3.05 L Hgb 9.2 L Hct 28.1 L MCV 92.1 MCH 30.2 MCHC 32.7 RDW 13.2 Plt Count 243 MPV 9.4 Sodium 136 Potassium 4.0 Chloride 104 Carbon Dioxide 27.9 Anion Gap 4.1 BUN 12 Creatinine 0.93 Estimated GFR/1.73 m2 58.46 Glucose 92 Calcium 7.9 L
--- NOTE | 2018-04-09 12:40 | INDS_ITS ---
PT Notes PT Notes Inpatient Physical Therapy Discharge Summary Date: 04/03/18 Dates of Service: 04/02/18-04/03/18 SUBJECTIVE: Pt lying in bed, states she walked 2 loops around the unit last night. She is eager to go home today. Agreeable to PT session prior to discharge. OBJECTIVE: General Observation: IV R UE, taylor catheter, cryocuff L knee, sylvester wrap L LE Pain: no c/o pain BED MOBILITY/TRANSFERS: Supine-sit: independent Sit-stand: independent with FWW Stand-sit: independent sit-supine: independent Bed-chair: independent with FWW GAIT: indepednent with FWW 70ftx2 WBAT R LE STAIRS Instructed in up/down 4 steps with right railing, independent WBAT R LE THEREX Pt instructed in LE therex program, Performed ankle pumps, hip flexion x 10 reps LAQ x 10reps BALANCE: Static sitting normal Dynamic Sitting normal Static Standing fair Dynamic Standing fair ASSESSMENT: Pt is a 78yr old female s/p left total knee arthroplasty by Dr. Pierre 04/02/18 in setting of degenerative joint disease bilateral knees. Patient was seen for 2 PT sessions. Progressed from SBA standing transfers to independent, from SBA gait with FWW 4 steps to independent gait with FWW 70ftx2 , able to ascend/descend 4 steps independently. Pt has met therapy goals and is ready for discharge to home setting. GOALS Goals x1 week 1. Supine-sit: independent 2. Sit-Supine: independent 3. Sit-Stand: supervision with FWW 4. Stand-sit: supervision 5. Bed-chair SBA with FWW 6. Chair-bed SBA with FWW 7. Gait SBA with FWW 75ftx2, WBAT L LE 8. Stairs: up/down 4 steps with railing, SBA W BAT L LE 9. I with home exercise program for L TKA Pt met goals # 1-9 DISCHARGE RECOMMENDATIONS Home, has all DME TREATMENT TIME/MINUTES/CODES 24 min TAx1 TP x1 8:20 G Codes in the area mobility of walking and moving around:projected status GP [id number] . Discharge status (if discharging) GP [id number]__[id number]__ Lisha Peralta PT
== END 2018-04-03 13:00 | disposition home or self-care (01) | DRG 470 ==
PROVIDERS: Admitting Provider Student in an Organized Health Care Education/Training Program; PCP Nurse Practitioner; Visit Provider Student in an Organized Health Care Education/Training Program
PROC: 0SRD0J9 Replacement of Left Knee Joint with Synthetic Substitute, Cemented, Open Approach (ICD-10-PCS; CPT 27447; principal; 2018-04-02 10:25)
DX: M17.12 Unilateral primary osteoarthritis, left knee (principal); Z96.652 Presence of left artificial knee joint; G89.18 Other acute postprocedural pain; M21.162 Varus deformity, not elsewhere classified, left knee; Z96.651 Presence of right artificial knee joint
CPT/HCPCS: 27447; 20985; 36415; 76942; 80048; 85027; 97110; 97162; 97530; NC; J0131; J0690; J1100; J1885; J2250; J2405

== ENCOUNTER → 2018-04-17 08:45 | Outpatient (BNVA) | payer MEDICARE, OTHER, SELFPAY | PROVIDERS: PCP Nurse Practitioner; Referring Provider Nurse Practitioner; Visit Provider Student in an Organized Health Care Education/Training Program | DX: Z47.1 Aftercare following joint replacement surgery (principal); Z96.653 Presence of artificial knee joint, bilateral ==

== ENCOUNTER 2018-04-17 12:45 | Outpatient (CLI) | payer MEDICARE, OTHER, SELFPAY ==
--- NOTE | 2018-04-17 08:54 | DI.RAD_ITS ---
SYMPTOMS/DIAGNOSIS: OMAR TKA BILATERAL LOWER EXTREMITIES: AP views of the lower extremities were obtained for leg length determination. There are bilateral total knee joint prostheses. Mild DJD of both hips noted. LEFT KNEE: Single lateral view of the knee was obtained and shows total knee joint replacement in position. The components appear well seated. No other bony abnormality is seen.
== END 2018-04-17 13:05 ==
PROVIDERS: PCP Nurse Practitioner; Referring Provider Nurse Practitioner; Visit Provider Student in an Organized Health Care Education/Training Program
DX: Z96.653 Presence of artificial knee joint, bilateral (principal); Z47.1 Aftercare following joint replacement surgery; M16.0 Bilateral primary osteoarthritis of hip
CPT/HCPCS: 73560; 77073

== ENCOUNTER → 2018-05-15 10:05 | Outpatient (BNVA) | payer MEDICARE, OTHER, SELFPAY | PROVIDERS: PCP Nurse Practitioner; Visit Provider Student in an Organized Health Care Education/Training Program | DX: Z47.1 Aftercare following joint replacement surgery (principal); Z96.653 Presence of artificial knee joint, bilateral ==

== ENCOUNTER 2021-10-19 10:08 | Outpatient (REF) | payer MEDICARE, OTHER, SELFPAY ==
[2021-10-19 14:47] LABS: Abs Immature Grans 0.02 10^3/uL (0.0-0.06); Absolute Basophil Count 0.05 10^3/uL (0.0-0.2); Absolute Eosinophil Count 0.07 10^3/uL (0.0-0.7); Absolute Lymphocyte Count 1.89 10^3/uL (1.2-3.4); Absolute Monocyte Count 0.43 10^3/uL (0.1-0.8); Basophils % 0.6; Eosinophils % 0.9; HCT 38.4 % (36.0-46.0); HGB 12.6 g/dL (11.2-15.7); Immature Grans % 0.3; Lymphocytes % 24.4; MCH 29.6 pg (27.0-33.0); MCHC 32.8 % (32.0-36.0); MCV 90.4 fL (80-95); MPV 11.1 fL (8.0-11.0); Monocytes % 5.5; Neutrophils % 68.3; Nucleated RBC 0 %; Platelet Count 207 10^3/uL (130-400); RBC 4.25 10^6/uL (3.93-5.22); RDW 13.1 % (11.7-14.6); RDW-SD 43.3 fL; WBC 7.76 10^3/uL (4.4-10.8)
[2021-10-19 15:04] LABS: ALT 21 U/L (14-59); AST 19 U/L (15-37); Alkaline Phosphatase 89 U/L (46-116); Anion Gap 8.5 mmol/L (3-11); BUN 15 mg/dL (7-18); Bilirubin, Total 0.6 mg/dL (0.2-1.0); CO2 26.5 mmol/L (21.0-32.0); CREATININE 0.8 mg/dL (0.55-1.02); Calcium 8.8 mg/dL (8.5-10.1); Calculated LDL 93 mg/dL (<100); Chloride 100 mmol/L (98-107); Cholesterol 173 mg/dL (<200); Glucose 101 mg/dL (74-106); HDL Cholesterol 64 mg/dL (40-60); Potassium 4.6 mmol/L (3.5-5.1); Sodium 135 mmol/L (136-145); Triglyceride 83 mg/dL (<150)
== END 2021-10-19 10:09 | disposition home or self-care (01) ==
LOC: LBN 10:08
PROVIDERS: PCP Nurse Practitioner; Visit Provider Nurse Practitioner
DX: R10.9 Unspecified abdominal pain (principal); Z13.220 Encounter for screening for lipoid disorders; J45.909 Unspecified asthma, uncomplicated; I10 Essential (primary) hypertension
CPT/HCPCS: 80053; 80061; 85025

== ENCOUNTER → 2021-11-07 01:12 | Outpatient (CLI) | payer MEDICARE, OTHER, SELFPAY ==
--- NOTE | 2021-11-07 08:00 | DI.CT_ITS ---
Exam(s) CT ABDOMEN PELVIS W EXAM: CT ABDOMEN PELVIS W CLINICAL HISTORY: LLQ PAIN, ? LUMP,R10.9. TECHNIQUE: Imaging Protocol: Axial computed tomography images with coronal and sagittal reformatted images were created and reviewed CONTRAST MATERIAL: Intravenous: Omnipaque 350 Contrast volume:89 ml Oral: yes COMPARISON: US LIZ from 02/12/2018 FINDINGS: ABDOMEN: Lung Bases: Normal where visualized. Heart is enlarged. Liver: Normal density. No measurable mass. Gallbladder and biliary tract: Cholelithiasis. No gallbladder wall thickening. Mild intra nap extra hepatic biliary dilatation. No common duct stone seen.. Pancreas: Normal density, no abnormal calcifications or inflammatory process. Spleen: Normal. Kidneys: Normal size, contour and axis. No radiodense stones or obstructive uropathy. No masses seen. Small bilateral cysts. Adrenal glands: No masses seen. Abdominal Aorta: Abdominal portion non-dilated. Atherosclerotic changes. PELVIS: Bladder: No gross wall thickening. No calculi.No focal mass. Bowel: Sigmoid diverticulosis. No evidence of diverticulitis. No obstruction or bowel wall thickeni ng. Appendix normal. Peritoneal cavity: No ascites, collection or mesenteric inflammatory response. Soft tissues: A small there is a small left inguinal hernia containing a small portion of a nonobstructed loop of small bow el and a small amount of fluid. This roughly corresponds to the palpable abnormality. Bones: Degenerative disc changes at L3-4. Baastrup's disease spinous processes. Reproductive organs: Uterus and right ovary within normal limits. 7.3 by 10 x 7.2 centimeter mostly f atty attenuation mass related to the left ovary, consistent with a dermoid. Lymph nodes: Unremarkable. Impression: 1. Small left inguinal hernia containing nonobstructed loop of small bowel. 2. 10 centimeter mostly fatty density mass of the right ovary, consistent with a dermoid. RADIATION DOSE DELIVERED: 792.55mGy.cm Total DLP DATA REPOSITORY: All CT scans at this facility are submitted to the National Radiology Data Registry (NRDR) Dose Index Registry (DIR) with the [employer] ([employer]). RADIATION OPTIMIZATION: All CT scans at this facility use at least one of these dose optimization te chniques: automated exposure control; mA and/or kV adjustment per patient size (includes targeted exa ms where dose is matched to clinical indication); or iterative reconstruction.
[2021-11-07] MEDS: Breeza Beverage 473 ML BTL 950 ML PO (13:21)
[2021-11-07] MEDS: Omnipaque 350 MG/ML 50 ML BTL PO (13:22)
[2021-11-07] MEDS: Omnipaque 350 MG/ML 100 ML BTL IJ (14:24)
== END ==
PROVIDERS: PCP Nurse Practitioner; Visit Provider Nurse Practitioner
DX: R10.32 Left lower quadrant pain (principal); K80.20 Calculus of gallbladder without cholecystitis without obstruction; N28.1 Cyst of kidney, acquired; K40.90 Unilateral inguinal hernia, without obstruction or gangrene, not specified as recurrent; D27.1 Benign neoplasm of left ovary
CPT/HCPCS: 74177; J3490; Q9967

== ENCOUNTER 2023-11-27 09:55 | Emergency (ER) | payer MEDICARE, OTHER, SELFPAY ==
[2023-11-27] VITALS (25 sets, daily range): BP systolic 168–188; BP diastolic 81–98; PULSE 63–98; RESP 12–24; TEMP 36.4–36.8; O2SAT 95–99
--- NOTE | 2023-11-27 10:00 | RT.EKG_ITS ---
APPROVED REPORT Exam: Resting ECG Reason for Exam: Dizziness Patient Location: E HR:78 bpm ECG Measurements Heart Rate 78 AXIS OH 173 P 60 QRSd 102 QRS -17 QT 411 T 38 QTc 468 Conclusion Sinus rhythm...normal P axis, V-rate 60- 99 Physician: no stemi
[2023-11-27 10:57] LABS: Abs Immature Grans 0.02 10^3/uL (0.0-0.06); Absolute Basophil Count 0.04 10^3/uL (0.0-0.2); Absolute Eosinophil Count 0.09 10^3/uL (0.0-0.7); Absolute Monocyte Count 0.34 10^3/uL (0.1-0.8); Absolute Neutrophil Count 4.16 10^3/uL (1.2-6.7); Basophils % 0.6; Eosinophils % 1.4; HCT 38.1 % (36.0-46.0); HGB 12.5 g/dL (11.2-15.7); Immature Grans % 0.3; Lymphocytes % 25.6; MCH 29.6 pg (27.0-33.0); MCHC 32.8 % (32.0-36.0); MCV 90 fL (80-95); MPV 9.5 fL (8.0-11.0); Monocytes % 5.4; Neutrophils % 66.7; Platelet Count 202 10^3/uL (130-400); RBC 4.22 10^6/uL (3.93-5.22); RDW 13.4 % (11.7-14.6); RDW-SD 44.3 fL; WBC 6.25 10^3/uL (4.4-10.8)
[2023-11-27] MEDS: Normal Saline 500 ML 250 ML IV (11:14)
[2023-11-27 11:25] LABS: ALT 25 U/L (14-59); AST 20 U/L (15-37); Albumin 3.7 g/dL (3.4-5.0); Alkaline Phosphatase 87 U/L (46-116); Anion Gap 7.4 mmol/L (3-11); BUN 15 mg/dL (7-18); Bilirubin, Total 0.5 mg/dL (0.2-1.0); CO2 26.6 mmol/L (21.0-32.0); CREATININE 0.9 mg/dL (0.55-1.02); Calcium 8.8 mg/dL (8.5-10.1); Chloride 102 mmol/L (98-107); Estimated GFR 63.83 (mL/min/1.73m2); Glucose 131 mg/dL (74-106); Potassium 3.8 mmol/L (3.5-5.1); Sodium 136 mmol/L (136-145); Troponin I < 50 ng/L (< or =60)
--- NOTE | 2023-11-27 12:28 | DI.CT_ITS ---
Exam(s) CT HEAD WO EXAM: CT HEAD WO CLINICAL HISTORY: dizzy. TECHNIQUE: Imaging Protocol: Axial computed tomography images with coronal and sagittal reformatted images were created and reviewed COMPARISON: No exams were available for comparison FINDINGS: Ventricles and Extra axial spaces: Normal in size and morphology for the patient's age. Hemorrhage: None. Cerebral parenchyma: No evidence of acute infarct or mass. Atrophy consistent with the patient's ag e. Mild white matter changes of small vessel disease. Midline shift: None. Brainstem/Cerebellum: Normal. Calvarium: Normal. Visualized Paranasal sinuses:Clear small mucous retention cyst in the right maxillary sinus, otherwis e clear Mastoids: Clear. Soft Tissues: Unremarkable. ORBITS: Unremarkable. PITUITARY: Not enlarged. IMPRESSION: No acute intracranial process. RADIATION DOSE DELIVERED: 678.4mGy.cm Total DLP DATA REPOSITORY: All CT scans at this facility are submitted to the National Radiology Data Registry (NRDR) Dose Index Registry (DIR) with the [employer] (A[employer]). RADIATION OPTIMIZATION: All CT scans at this facility use at least one of these dose optimization te chniques: automated exposure control; mA and/or kV adjustment per patient size (includes targeted exa ms where dose is matched to clinical indication); or iterative reconstruction.
--- NOTE | 2023-11-27 13:26 | ED.GENADUL_ITS ---
Discharge Plan Disposition Patient Disposition: Home Condition: Good Discharge Details Clinical Impression: Episode of dizziness Primary Care Provider: Tiffany Baumann ED Provider: Alvarado Deluna Home Meds and New Rx's Prescriptions: New meclizine 25 mg tablet 25 mg PO BID PRNQty: 20 0RF No Action cholecalciferol (vitamin D3) PO DAILY Rx Instructions: During the winter months omega-3 fatty acids 100 MG tablet,chewable 100 mg PO DAILY Probiotic 1 EACH capsule 1 ea PO DAILY acetaminophen [Mapap Extra Strength] 500 MG tablet 500 mg PO Q6H PRN PRNQty: 100 3RF Discharge Instructions Instructions: Dizziness (ED) Additional Instructions: At this time your workup has returned very reassuring. Your blood work shows no significant abnormality, your heart markers are normal. Your thyroid function is normal. The CAT scan of your head shows no signs of stroke or bleed. If your dizziness develops again, please take the meclizine as directed. Is been sent to your pharmacy on file. If you notice any worsening of your symptoms, or any new symptoms such as vomiting, diarrhea, fever, chills, shortness of breath, chest pain, numbness, weakness, or fainting , please return immediately to the emergency department for reevaluation. Please follow up with your primary care provider as soon as possible for reassessment and reevaluation. As always, it was a pleasure participating in your medical care today. Referrals: Tiffany Baumann, DOMINIC [Primary Care Provider] - [facility] General Date/Time Provider Initiated Documentation: 11/27/23 09:56 . HPI Narrative: 83-year-old female presents today for evaluation of transient dizzin ess. Patient states that she was at [employer] and praying when she began to feel slightly dizzy. She felt slightly nauseous when she would walk. Symptoms lasted for small well. She was then brought by friend to the ER for further assessment. She states that at this time her symptoms are completely gone, and she feels much better. She denies fever or chills. She denies vomiting or diarrhea. She denies any current room spinning sensation, but did feel like things were moving before. She denies any headache. She denies any numbness or tingling. She denies any ringing in her ears. No other complaints at this time. No history of stroke. Related Data Home Medications Medication Instructions Recorded Confirmed omega-3 fatty acids 100 mg 100 mg PO DAILY 03/29/15 02/21/23 chewable tablet Lactobacillus acidophilus 10 1 ea PO DAILY 09/26/16 02/21/23 billion cell capsule (Probiotic) acetaminophen 500 mg tablet (Mapap 500 mg PO Q6H PRN PRN #100 tabs 02/14/18 02/21/23 Extra Strength) cholecalciferol (vitamin D3) PO DAILY 02/21/23 02/21/23 meclizine 25 mg tablet 25 mg PO BID PRN #20 tabs 11/27/23 Previous Rx's Medication Instructions Recorded acetaminophen 500 mg tablet (Mapap 500 mg PO Q6H PRN PRN #100 tabs 02/14/18 Extra Strength) meclizine 25 mg tablet 25 mg PO BID PRN #20 tabs 11/27/23 Allergies Allergy/AdvReac Type Severity Reaction Status Date / Time No Known Allergies Allergy Verified 02/21/23 12:54 General Stated Complaint: Dizzy/Sync GALLO: 3 Review of Systems All systems reviewed & are unremarkable except as noted in HPI and below Exam Narrative Exam Narrative: 1.Const: Well-nourished, Well-developed, appearing stated age 2.Eyes: PERRL, no conjunctival injection, and symmetrical lids. 3.ENT: Atraumatic external nose and ears. Moist MM. Neck: Symmetric, trachea midline, No thyromegaly. 4.CVS: +S1/S2, No murmurs or gallops. Peripheral pulses 2+ and equal in all extremities. Brisk capillary refill in all extremities. 5.RESP: Unlabored respiratory effort. Clear to auscultation bilaterally. No wheezes rales or rhonchi 6.GI: Soft, Nontender/Nondistended, No hepatosplenomegaly. No guarding or rebound. 7.MSK: Normocephalic/Atraumatic, Extremities w/o deformity or ttp No cyanosis or clubbing, Normal movement of all extremities 8.Skin: Warm, Dry. No rashes or lesions. 9.Neuro: utility operator II-XII grossly intact. Sensation grossly intact, no focal neurologic deficits. All 6 cardinal planes of vision are fully intact. No evidence of rotatory or vertical nystagmus. The patient demonstrated a normal eorzbf-[id number]-qgfeue, good dexterity. There was no evidence of dysdiadochokinesia. Patient was able to ambulate without difficulty. There was no wide-based gait. Romberg testing was normal. Qjwd-kl-cume testing was normal. Sensation was intact bilaterally as well as muscle strength bilaterally for all extremities. Patient was able to verbalize butter cup with no slurring, or miss pronunciation. 10.Psych: (AAO) x3. Appropriate mood and affect Course Vital Signs Vital signs: Vital Signs Temperature 36.4 C 11/27/23 10:07 Pulse 98 H 11/27/23 10:07 Respiratory Rate 20 11/27/23 10:07 Blood Pressure 168/98 H 11/27/23 10:07 Pulse Oximetry 96 11/27/23 10:07 Temperature 36.4 C 11/27/23 10:07 Temperature Source Temporal Artery Scan 11/27/23 10:07 Pulse 98 H 11/27/23 10:07 Respiratory Rate 20 11/27/23 10:09 Respiratory Effort Normal 11/27/23 10:09 Respiratory Depth Normal 11/27/23 10:09 Respiratory Pattern Normal 11/27/23 10:09 Blood Pressure 168/98 H 11/27/23 10:07 Blood Pressure Position Sitting 11/27/23 10:07 Pulse Oximetry 96 11/27/23 10:07 Oxygen Delivery Method Room Air 11/27/23 10:07 Oxygen Flow Rate 0 11/27/23 10:07 Pain Level 0 11/27/23 10:07 Lab/Test Results Lab/Test Results: Laboratory Tests Range/Units 11/27/23 10:50 WBC (4.4-10.8) 10^3/uL 6.25 RBC (3.93-5.22) 10^6/uL 4.22 Hgb (11.2-15.7) g/dL 12.5 Hct (36.0-46.0) % 38.1 MCV (80-95) fL 90 MCH (27.0-33.0) pg 29.6 MCHC (32.0-36.0) % 32.8 RDW (11.7-14.6) % 13.4 Plt Count (130-400) 10^3/uL 202 MPV (8.0-11.0) fL 9.5 Immature Gran % 0.3 Neutrophils % 66.7 Lymphocytes % 25.6 Monocytes % 5.4 Eosinophils % 1.4 Basophils % 0.6 Nucleated RBC % (0.0-0.3) % 0.0 Absolute Neutrophils (1.2-6.7) 10^3/uL 4.16 Absolute Lymphocytes (1.2-3.4) 10^3/uL 1.60 Absolute Monocytes (0.1-0.8) 10^3/uL 0.34 Absolute Eosinophils (0.0-0.7) 10^3/uL 0.09 Absolute Basophils (0.0-0.2) 10^3/uL 0.04 Sodium (136-145) mmol/L 136 Potassium (3.5-5.1) mmol/L 3.8 Chloride (98-107) mmol/L 102 Carbon Dioxide (21.0-32.0) mmol/L 26.6 Anion Gap (3-11) mmol/L 7.4 BUN (7-18) mg/dL 15 Creatinine (0.55-1.02) mg/dL 0.9 Est GFR (CKD-EPI 2020) (mL/min/1.73m2) 63.83 Glucose (74-106) mg/dL 131 H Calcium (8.5-10.1) mg/dL 8.8 Total Bilirubin (0.2-1.0) mg/dL 0.5 AST (15-37) U/L 20 ALT (14-59) U/L 25 Alkaline Phosphatase (46-116) U/L 87 Troponin I (< or =60) ng/L < 50 Total Protein (6.4-8.2) g/dL 7.0 Albumin (3.4-5.0) g/dL 3.7 TSH (0.36-3.74) uIU/mL 1.80 Medical Decision Making 83-year-old female presents today for evaluation of transient dizziness. Patient states that she was at catholic and praying when she began to feel slightly dizzy. She felt slightly nauseous when she would walk. Symptoms lasted for small well. She was then brought by friend to the ER for further assessment. She states that at this time her symptoms are completely gone, and she feels much better. She denies fever or chills. She denies vomiting or diarrhea. She denies any current room spinning sensation, but did feel like things were moving before. She denies any headache. She denies any numbness or tingling. She denies any ringing in her ears. No other complaints at this time. No history of stroke. Physical exam demonstrates well-appearing female, no horizontal vertical or rotatory nystagmus, she ambulates well, she has normal strength, no neurologic deficits whatsoever on assessment. Patient looks notably well and she is clinically asymptomatic. However because the patient's age risk factors and symptomatology we will get CT imaging to rule out acute major stroke or hemorrhage, basic labs to check electrolyte status, EKG to evaluate for dysrhythmia, will monitor closely and reassess. 4:26 PM Laboratory workup has returned normal, thyroid function normal, troponin normal, EKG normal, CT scan of the head negative. Patient still feels well and asymptomatic. Suspect potential mild positional vertiginous episode. Will give prescription for meclizine to use at home if needed. Otherwise no additional treatment indicated. The patient did receive a 250 cc fluid bolus while here, which I think will help her fluid status. Discussed red flags for which to return. I have extensively reviewed the treatment plan and discharge instructions with the patient and their family. I have addressed all patient concerns at this time. The patient and family was made aware of what symptoms to monitor for that would warrant a return to the emergency department. Discussed the plan with the patient and family, they demonstrate verbal understanding and agreement with our assessment and plan at this time. The documentation in this chart was dictated using [employer] dictation software. Please excuse any dictation errors. FINDINGS: Ventricles and Extra axial spaces: Normal in size and morphology for the patient's age. Hemorrhage: None. Cerebral parenchyma: No evidence of acute infarct or mass. Atrophy consistent with the patient's age. Mild white matter changes of small vessel disease. Midline shift: None. Brainstem/Cerebellum: Normal. Calvarium: Normal. Visualized Paranasal sinuses:Clear small mucous retention cyst in the right maxillary sinus, otherwise clear Mastoids: Clear. Soft Tissues: Unremarkable. ORBITS: Unremarkable. PITUITARY: Not enlarged. IMPRESSION: No acute intracranial process. Quality:SDOH Health Related Social Needs: No Data to Display PFSH All Active Problems Episode of dizziness (Acute) Pessary maintenance (Acute) Colon cancer screening declined (Acute) Mammogram declined (Acute) Hearing difficulty (Acute) Bladder prolapse (Chronic) Cystocele and uterine prolapse. 2013 changed size from #6 to #7 ring with support Osteoarthritis of both knees (Acute 03/29/15) Missed vaccination due to patient refusal (Acute 03/29/15) Intermittent low back pain (Acute 03/29/15) Primary osteoarthritis of left knee (Acute) Medical History Osteoarthritis knees Surgical History Status post total bilateral knee replacement Right TKR ? February 13, 2018 Left TKR ? April 02, 2018 Repair of inguinal hernia Dilation and curettage Family History Mother Arthritis Father Pulmonary emphysema Brother Personal history of malignant neoplasm Kidney CA Brother Personal history of malignant neoplasm Kidney CA Brother Personal history of malignant neoplasm Prostate CA Brother Personal history of malignant neoplasm Sister Personal history of malignant neoplasm Blood CA Social History Smoking/Tobacco Use Status: Never Smoking risk assessment performed?: Yes Drug use: Never
== END 2023-11-27 13:41 | disposition home or self-care (01) ==
PROVIDERS: Emergency Provider Student in an Organized Health Care Education/Training Program; PCP Nurse Practitioner
DX: R42 Dizziness and giddiness (principal)
CPT/HCPCS: 80053; 93005; 96360; 96361; 99285; 70450; 84443; 84484; 85025; 93010; 99284

== ENCOUNTER → 2023-12-20 04:06 | Outpatient (CLI) | payer MEDICARE, OTHER, SELFPAY ==
--- NOTE | 2023-12-20 08:00 | DI.US_ITS ---
Exam(s) US PELVIS TRANSVAGINAL EXAM: US PELVIS TRANSVAGINAL CLINICAL HISTORY: f/u right 7 cm ? dermoid. Patient didn't f/u on N83.8 DISORDER OVARY TECHNIQUE: Transabdominal and transvaginal imaging was performed using standard protocol. COMPARISON: CT CT ABDOMEN PELVIS W from 11/07/2021 FINDINGS: UTERUS: Anteverted. 7.9 x 3.1 x 4.1 cm Endometrium: Not well seen. Myometrium: Peripheral calcifications, likely vascular. Cervix: Unremarkable. OVARIES: Right: Not visualized. Left: Cyst or mass: Left adnexal mass measuring 11 x 6.7 x 9.2 cm. It is better evaluated on CT due to its large size and shows both fatty and solid components. DOPPLER: Color: Symmetric and uniform flow to both ovaries. No hyperemia. CUL-DE-SAC: Free fluid: None. 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 Size not significantly changed. DATA REPOSITORY:
== END ==
PROVIDERS: PCP Nurse Practitioner; Visit Provider Nurse Practitioner
DX: N83.8 Other noninflammatory disorders of ovary, fallopian tube and broad ligament (principal)
CPT/HCPCS: 76830; 76856

== ENCOUNTER → 2024-02-18 09:50 | Outpatient (BNVA) | payer MEDICARE, OTHER, SELFPAY | PROVIDERS: PCP Nurse Practitioner; Referring Provider Nurse Practitioner; Visit Provider Surgery | DX: K40.90 Unilateral inguinal hernia, without obstruction or gangrene, not specified as recurrent (principal) | CPT/HCPCS: 99214 ==

== ENCOUNTER 2024-04-08 07:32 | Day surgery (SDC) | payer MEDICARE, OTHER, SELFPAY ==
[2024-04-08] VITALS (42 sets, daily range): BP systolic 134–174; BP diastolic 71–87; PULSE 57–69; RESP 12–20; TEMP 36.1–36.6; O2SAT 94–99; BMI 25.4
[2024-04-08] MEDS: Acetaminophen 500 MG TAB 1000 MG PO (08:28)
[2024-04-08] MEDS: Gabapentin 300 MG CAP 600 MG PO (08:28)
[2024-04-08] MEDS: Lactated Ringers 1,000 ML 80 ML IV (08:35)
--- NOTE | 2024-04-08 08:36 | ANES.PREOP_ITS ---
General Info Date of Service Date Performed: 04/08/24 Height: 5 ft Weight: 59.2 kg Body Mass Index (BMI): 25.4 Surgical Procedure: Operation Date: 04/08/24 09:40 Proposed Procedure Side Surgeon p Herniorrhaphy Inguinal w/Mesh Left Robyn Tenorio DO Meds Allergies and Home Medications Allergies Allergy/AdvReac Type Severity Reaction Status Date / Time No Known Allergies Allergy Verified 04/08/24 08:07 Home Medication ?Medication ?Instructions ?Recorded omega-3 fatty acids 100 mg 100 mg PO DAILY 03/29/15 chewable tablet Lactobacillus acidophilus 10 1 ea PO DAILY 09/26/16 billion cell capsule (Probiotic) acetaminophen 500 mg tablet (Mapap 500 mg PO Q6H PRN PRN #100 tabs 02/14/18 Extra Strength) cholecalciferol (vitamin D3) 1 tab PO DAILY 02/21/23 meclizine 25 mg tablet 25 mg PO BID PRN #20 tabs 11/27/23 Current Visit Medications: Current Medications Generic Name Dose Route Start Last Admin Trade Name Fre PRN Reason Stop Dose Admin Acetaminophen 1,000 mg 04/08/24 06:00 04/08/24 08:28 Acetaminophen 500 Mg Tab PO 05/07/24 23:59 1,000 mg PREOP ILAN Administration Gabapentin 600 mg 04/08/24 06:00 04/08/24 08:28 Gabapentin 300 Mg Cap PO 05/07/24 23:59 600 mg PREOP ILAN Administration Ondansetron HCl 4 mg/ Sodium 52 mls @ 200 mls/hr 04/08/24 00:33 Chloride IVPB 05/08/24 00:32 Q6H PRN PRN Ringer's Solution 1,000 mls @ 80 mls/hr 04/08/24 06:00 IV 05/07/24 23:59 INFUSION ILAN Cefazolin Sodium/Dextrose 2 gm in 50 mls @ 100 mls/hr 04/08/24 06:00 Ancef Duplex IVPB 05/07/24 23:59 PREOP ILAN IV Miscellaneous Supplies 1 each 04/08/24 06:00 Iv Access IV 05/07/24 23:59 DIRECTED ILAN Morphine Sulfate 2 mg 04/08/24 00:33 Morphine 4 Mg/Ml Syr IVP 05/08/24 00:32 Q1H PRN PRN Sodium Chloride 0 ml 04/08/24 06:00 Normal Saline Flush 10 Ml Syr IV 05/07/24 23:59 PRN PRN Sodium Chloride 0 ml 04/08/24 06:00 Normal Saline 10 Ml Vial IJ 05/07/24 23:59 DIRECTED PRN Sterile Water 0 ml 04/08/24 06:00 Water,Injection,Sterile 10 Ml Vial IJ 05/07/24 23:59 DIRECTED PRN Tramadol HCl 50 mg 04/08/24 00:33 Tramadol 50 Mg Tab PO 05/08/24 00:32 Q6H PRN PRN Pain PFSH Active Problems Active Problems: Problem Status Onset Code Left inguinal hernia Acute K40.90 Right ovarian cyst Acute N83.201 Pessary maintenance Acute Z46.89 Colon cancer screening declined Acute Z53.20 Mammogram declined Acute Z53.20 Hearing difficulty Acute H91.90 Bladder prolapse Chronic Osteoarthritis of both knees Acute 03/29/15 M17.0 Missed vaccination due to patient refusal Acute 03/29/15 Z28.21 Intermittent low back pain Acute 03/29/15 M54.5 Primary osteoarthritis of left knee Acute M17.12 Medical History Medical History Osteoarthritis knees Surgical History Surgical History History of facial surgery Status post total bilateral knee replacement Right TKR ? February 13, 2018 Left TKR ? April 02, 2018 Repair of inguinal hernia Dilation and curettage Tobacco Smoking/Tobacco Use Status: Never Alcohol Alcohol Intake: never Substance Use Substance use: Never Substance use type: does not use Vital Signs and Lab Results Vital Signs Most Recent Vital Signs in EMR: Most Recent Vital Signs Temp Pulse Resp BP Pulse Ox 36.2 C L 68 16 153/82 H 99 04/08/24 08:19 04/08/24 08:19 04/08/24 08:19 04/08/24 08:19 04/08/24 08:19 Lab Results Blood Type / Crossmatch: No Data to Display Complete Blood Count: No Data to Display Complete Metabolic Panel: No Data to Display Liver Function Panel: No Data to Display Coagulation Panel: No Data to Display Cardiac Panel: No Data to Display Arterial Blood Gas: No Data to Display Venous Blood Gas: No Data to Display Pancreas Panel: No Data to Display Thyroid Panel: No Data to Display Infectious Disease: No Data to Display Blood Cultures: No Data to Display Toxicology Panel: No Data to Display Imaging and Studies Imaging and Studies Study information below may be from another EMR and interpreted by another provider. Please see original notes in EMR for more complete details. EKG Summary: EKG PATIENT NAME: Deidre Kinney UNIT #: [id number] ORDERING PROVIDER: Alvarado Solomon DO PRIMARY CARE PROVIDER: SAMSON CAMPOVERDE NP DATE/TIME OF SERVICE: 11/27/23 1009 : 1940 PERFORMING LOCATION: ER APPROVED REPORT Exam: Resting ECG Reason for Exam: Dizziness Patient Location: E HR:78 bpm ECG Measurements Heart Rate 78 AXIS AL 173 P 60 QRSd 102 QRS -17 QT 411 T38 QTc 468 Conclusion Sinus rhythm...normal P axis, V-rate 60- 99 Physician: no stemi <Electronically signed by ALVARADO SOLOMON DO in [facility]> E-Sign Date: 11/27/23 E-Sign Time: 1328 ADDENDUM APPROVED REPORT Exam: Resting ECG Reason for Exam: Dizziness Patient Location: E HR:78 bpm ECG Measurements Heart Rate 78 AXIS AL 173 P 60 QRSd 102 QRS -17 QT 411 T38 QTc 468 Conclusion Sinus rhythm...normal P axis, V-rate 60- 99 Physician: no stemi I have reviewed and I agree with the emergency room physician's ECG interpretation. Electronically signed by: <Electronically signed by Vidya Reddy M.D. in [facility]> 11/27/23 1340 Cosigned by: Anesthesia Assessment and Plan Anesthesia History Personal History: No History of Anesthesia Complications Family History: No Family History of Anesthesia Complications Exercise Tolerance Exercise Tolerance: Metabolic Equivalents>4 Pertinent Negatives Pertinent Negatives: No Major Cardiovascular Symptoms or Complaints, No Major Pulmonary Symptoms or Complaints and No History of CVA/TIA Cardiac & Pulmonary Exam Cardiac Exam: Normal S1/S2 Heart Sounds Pulmonary Exam: Clear Bilateral Breath Sounds Implantable Cardiac Device Does patient have a Pacemaker or an ICD?: No Airway Exam Known Difficult Airway: No Mallampati Class: 2 Mouth Opening: Normal (> 3cm) Thyromental Distance: Greater than 3 cm Neck Range of Motion: Full ROM Neck Circumference: Normal Teeth Condition: Normal Dentition ASA Classification ASA Score: ASA 2 Emergency Case?: No NPO Status NPO Status: NPO Clears >2 hours, Solids >8 hours Anesthesia Plan Resuscitation Status: Full Code Anesthesia Technique: General Anesthesia Airway Planned: LMA Pain Management: Surgeon and patient request nerve block Monitors Used: Standard Monitors
--- NOTE | 2024-04-08 11:22 | W.PM.HP.N ---
Date of service: 04/08/24 Time of Service: 11:23 Assessment and Plan Assessment and plan (1) Bladder prolapse: Status: Chronic (2) Intermittent low back pain: Status: Acute (3) Left inguinal hernia: Status: Acute Assessment and plan: I discussed the nature of inguinal hernias with the patient: how they form, and consequences of incarceration.? We discussed the warning signs of incarcerations (Severe pain/hardness and inability to reduce the hernia/vomiting/redness and fever) ?and when/how to seek medical attention (our office/PCP or ED).? ?I discussed the surgery in detail and the complications related to the surgery and the anesthesia.? I do recommend that the pt have a nerve block for postop pain control.? We also discussed multi-modality pain management.? Pt. expressed understanding; all questions were answered to the patient satisfaction and they do wish to proceed with surgery.? Patient was given an educational booklet & and a copy of the postop instructions and expressed understanding of how to care for themselves after surgery. Risks of the surgery include but are not limited to: Bleeding/infection/pneumonia/damage to blood vessels or bladder or?bowels/blood clots or PE/chronic pain/urinary retention/chronic numbness/reoccurrence/reaction to mesh requiring removal/damage to testicle or sterility/complications of anesthesia.?We also discussed the possibility of postop urinary retention and swelling/ bruising. ?The pt will have a pre-Op PE to ensure fitness for anesthesia, and preOp cardiac testing as deemed necessary. ?The procedure will be done with abx and under sterile conditions. This is an outpt day surgery.? ??The pt requires a ride home from surgery and someone to stay with the pt for 24 hrs after anesthesia.? No lifting over 5 pounds for 2-3 weeks after surgery.? Also take Miralax postop to avoid constipation. History of Present Illness Narrative: Patient is here today for open left inguinal hernia repair. ??? They not having any chest pain or shortness of breath, currently.? They are not experiencing any fever or chills.? They deny any productive cough or upper respiratory tract infection signs or symptoms.? They are not having abdominal pain, or nausea and vomiting.? They have not had any changes in medications, past medical history or past surgical history since previously being seen in the office. She did take her pessary out and so is having a little mild vaginal bleeding today. They have not had any accidents or have been in the ER since the clinic pre-operative evaluation. ??I reviewed the procedure with the patient today, including risks and benefits of the procedure, and what they could expect at home for recovery.? All questions are answered to the patient?s satisfaction today, and they are stable to proceed with the proposed procedure. RN: Pt reports area on her left groin that has become bigger lately. Pt reports comes out when she is up, goes in when she lays down. Lg left inguinal hernia. Patient has had right repaired in the past, but not the left.. She has had reconstructive work done on knees and hips b/c she was bow-legged. None of this was recent surgery. She did not tolerate vicodin She denies any pain with eating in the right upper quadrant. She denies any nausea or diarrhea with eating. I did review her chart. MILKING WORKER has followed her up closely for the dermoid and do not feel that it needs to be removed. She denies any pain from the dermoid. She denies any pain or difficulty moving her bowels from the hernia. It is annoying when she tries to do any strenuous activity because it will pop out. And it does limit her ability to be active. no problems anesthesia. JOMAR- no DM- no OH/CVA- no no cp/sob w/ stairs. 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 asthma/copd- no smoker- no CT: ABDOMEN: Lung Bases: Normal where visualized. Heart is enlarged. Liver: Normal density. No measurable mass. Gallbladder and biliary tract: Cholelithiasis. No gallbladder wall thickening. Mild intra nap extrahepatic biliary dilatation. No common duct stone seen.. Pancreas: Normal density, no abnormal calcifications or inflammatory process. Spleen: Normal. Kidneys: Normal size, contour and axis. No radiodense stones or obstructive uropathy. No masses seen. Small bilateral cysts. Adrenal glands: No masses seen. Abdominal Aorta: Abdominal portion non-dilated. Atherosclerotic changes. PELVIS: Bladder: No gross wall thickening. No calculi.No focal mass. Bowel: Sigmoid diverticulosis. No evidence of diverticulitis. No obstruction or bowel wall thickening. Appendix normal. Peritoneal cavity: No ascites, collection or mesenteric inflammatory response. Soft tissues: A small there is a small left inguinal hernia containing a small portion of a nonobstructed loop of small bowel and a small amount of fluid. This roughly corresponds to the palpable abnormality. Bones: Degenerative disc changes at L3-4. Baastrup's disease spinous processes. Reproductive organs: Uterus and right ovary within normal limits. 7.3 by 10 x 7.2 centimeter mostly fatty attenuation mass related to the left ovary, consistent with a dermoid. Lymph nodes: Unremarkable. Impression: 1. Small left inguinal hernia containing nonobstructed loop of small bowel. 2. 10 centimeter mostly fatty density mass of the right ovary, consistent with a dermoid Review of Systems All systems reviewed & are unremarkable except as noted in HPI and below PFSH All Active Problems Left inguinal hernia (Acute) Right ovarian cyst (Acute) 10cm dermoid cyst - unchanged from [id number]. No surgery necessary unless bothersome sxms. Pessary maintenance (Acute) Colon cancer screening declined (Acute) Mammogram declined (Acute) Hearing difficulty (Acute) Bladder prolapse (Chronic) Cystocele and uterine prolapse. 2013 changed size from #6 to #7 ring with support Osteoarthritis of both knees (Acute 03/29/15) Missed vaccination due to patient refusal (Acute 03/29/15) Intermittent low back pain (Acute 03/29/15) Primary osteoarthritis of left knee (Acute) Medical History Osteoarthritis knees Surgical History History of facial surgery Status post total bilateral knee replacement Right TKR ? February 13, 2018 Left TKR ? April 02, 2018 Repair of inguinal hernia Dilation and curettage Family History Mother Arthritis Father Pulmonary emphysema Brother Personal history of malignant neoplasm Kidney CA Brother Personal history of malignant neoplasm Kidney CA Brother Personal history of malignant neoplasm Prostate CA Brother Personal history of malignant neoplasm Sister Personal history of malignant neoplasm Blood CA Social History Smoking/Tobacco Use Status: Never Smoking risk assessment performed?: Yes Alcohol Intake: never Drug use: Never Substance use type: does not use Housing: apartment Do you feel safe at home: Yes Do you feel safe in your relationship?: Yes Additional Social history: UTAP Meds Allergies and Home Medications Allergies Allergy/AdvReac Type Severity Reaction Status Date / Time No Known Allergies Allergy Verified 04/08/24 08:07 Home Medications ?Medication ?Instructions ?Recorded ?Confirmed ?Type omega-3 fatty acids 100 mg 100 mg PO DAILY 03/29/15 04/08/24 History chewable tablet Lactobacillus acidophilus 10 1 ea PO DAILY 09/26/16 04/08/24 History billion cell capsule (Probiotic) acetaminophen 500 mg tablet (Mapap 500 mg PO Q6H PRN PRN #100 tabs 02/14/18 04/08/24 Rx Extra Strength) cholecalciferol (vitamin D3) 1 tab PO DAILY 02/21/23 04/08/24 History meclizine 25 mg tablet 25 mg PO BID PRN #20 tabs 11/27/23 04/08/24 Rx Exam Narrative Exam Narrative: PHYSICAL EXAM GENERAL APPEARANCE: Alert, healthy appearance, oriented, x 3,? in no acute distress HYDRATION: Well hydrated HEAD, EYES, EARS, NECK, THROAT: Head is normocephalic, pupils equal, round, reactive to light and accommodation, ocular movement intact, sclera clear and no jaundice. ?Dentition edentulous LUNGS: normal respiration/normal chest excursion. ?Clear to auscultation bilaterally. ?No wheeze. ?HEART: Regular rate and rhythm. no murmurs ABDOMEN: soft and non-tender to palpation.? Normal bowel sounds.? large left inguinal hernia. soft and reducible. Results Last Vital Signs Temp 36.2 C L 04/08/24 08:19 Pulse 68 04/08/24 08:19 Resp 16 04/08/24 08:19 BP 153/82 H 04/08/24 08:19 Pulse Ox 99 04/08/24 08:19 Time Spent Time spent with Patient: <40 minutes Time was spent: preparing to see the patient(eg.review tests), obtaining and/or reviewing separately otained hiistory, ordering medications,tests, procedures, referring, communicating with other health insurance healthcare representative, indepentently interpreting results, counseling the patient, care coordination and other
[2024-04-08] MEDS: ceFAZolin 2 GM/50 ML BAG IVPB (11:58)
[2024-04-08] MEDS: Bupivacaine 0.25% Pres-Free W/EPI 30 ML VIAL ×2 (12:02→12:50)
--- NOTE | 2024-04-08 12:27 | W.ANESNERVE ---
Nerve Block Single Injection Procedure Date and Time Date Performed: 04/08/24 Procedure Start: 11:40 Location Where Procedure Performed Procedure Location: Operating Room Procedure Stop: 11:46 Reason Performed: Postoperative Analgesia Requesting Provider: Robyn Tenorio Timeout Performed Timeout Performed: Yes Monitoring Used ECG, Blood Pressure and SpO2 Sterility Sterility: Hand Hygiene, Surgical Cap, Surgical Mask, Sterile Gloves and Chlorhexidine Sedation Given During Procedure Sedation Given (Indicate Dose Given): No Sedation given Patient Mental Status Patient Mental Status: Performed under general anesthesia Nerve Block 1st Nerve Block: Laterality: Left Block Type: TAP Unilateral Ultrasound Image Saved?: Yes Needle / Catheter Used: 100mm SonoPlex II Local Anesthetic Bolus (Indicate Dose Given): Injected in 3-5ml increments after negative blood aspiration, Bupivacaine 0.25% Dose:: 10 ml and Exparel Dose:: 10 ml Additives (Indicate Dose Given): Normal Saline (hydrodissection) Ultrasound: Sterile probe cover and gel used Nerve Stimulator: Not Used Paresthesia: None Procedure Tolerated: No Complications and Patient tolerated well Procedure Outcome: Successful Performed By: Jeffrey Baldwin
--- NOTE | 2024-04-08 12:57 | W.PM.OP ---
Date of service: 04/08/24 Time of Service: 12:57 Operative Note Operative Note DATE OF PROCEDURE: 04/08/24 PRE-OP DIAGNOSIS: left inguinal hernia POST-OP DIAGNOSIS: other (direct ) PROCEDURE: open repair w/ mesh- left inguinal SURGEON: Robyn South CENTERLESS GRINDER OPERATOR: Mounika Cardoza ANESTHESIA TYPE: Local By Surgeon and General LMA/ETT Refer to Anesthesia Record ESTIMATED BLOOD LOSS: 4 PATHOLOGY: none sent COMPLICATIONS: None Patient was transported to: PACU Patient's condition: stable Implants: see RN notes for lot # Procedure Description: INDICATIONS: The pt is here today for surgery regarding symptomatic -left-- inguinal hernia that has failed outpatient conservative medical management and he is here today for repair. Informed consent was obtained, explaining risks and benefits of the procedure including but not limited to bleeding, infection, pneumonia, blood clots, chronic pain, chronic numbness, damage to testicle resulting in removal, recurrence of hernia, reaction to Mesh necessitating removal, and other unforetold complications, and complications of anesthesia-which were addressed by the ZIPPER TRIMMER. The patient is marked in preOp prior to the procedure DESCRIPTION OF PROCEDURE:? The pt is then brought to the operative room suite. Anesthesia was administered per the Department of Anesthesia. The patient was prepped and draped in the usual sterile fashion using ChloraPrep scrub solution. Pause for the cause was done. He did receive preop IV antibiotics, and 30 mL of .25% Marcaine w/ epinephrine was used for local anesthetization. A #12 blade was used to make an incision over the external ring. Electrocautery used to provide hemostasis and dissect down to the fascia. The fascia was pretty much obliterated and there was nothing to open. The nerve was identified and destroyed using electrocautery. there ?is a? small cord lipomas-this is removed with electrocautery. ?Electro-cautery is used to provide hemostasis.There is a medium sized hernia pushing through the floor. The transversalis in this area is pretty much obliterated. The sac is opened and a high ligation of the sac is performed. the sac is inverted and returned to the abdomen. A medium mesh plug was then placed into the defect and oversewn into transversalis. The patch was then placed on the floor and sewn in using 2-0 Vicryl sewn into the pubic tubercle and the shelving portions of the inguinal ligament and tucked under the external oblique. ?The wound was copiously irrigated. There was no bleeding noted. All structures are returned to there nomral anatomic position.? The external oblique is than closing in a running fshion with 2-0 vicryl, taking care to not incorporate the nerve into the incision. Deep tissue was approximated with 3-0 Vicryl and skin was approximated with 4-0 Monocryl in a running subcuticular fashion. Steri tapes and sterile dressings are applied. The patient tolerated the procedure without complications to recovery in stable condition. ROBYN SOUTH, DO
[2024-04-08] MEDS: Ondansetron 4 MG/2 ML VIAL IVP (13:28)
--- NOTE | 2024-04-08 14:28 | W.ANESPOSTOP ---
Postoperative Evaluation Date, Time and Location Date Performed: 04/08/24 Time Performed: 14:28 Patient Location: Day Surgery Unit Vital Signs Most Recent Imported Vital Signs: Most Recent Vital Signs Temp Pulse Resp BP Pulse Ox 36.5 C 64 16 155/87 H 96 04/08/24 14:23 04/08/24 14:23 04/08/24 14:23 04/08/24 14:23 04/08/24 14:23 Pain Score Most Recent Pain Score: Most Recent Pain Score Pain Level 3 04/08/24 14:23 Assessment Mental Status: Awake (Alert & Oriented to Patient Baseline) Airway and Respiratory Function: Patent airway with normal (patient baseline) respiratory exam Cardiovascular Function: Hemodynamically Stable Hydration Status: Adequately Hydrated Nausea & Vomiting: No Nausea or Vomiting Pain: Pt. Denies Any Pain Peripheral Nerve Block: Patient did not receive a nerve block
--- NOTE | 2024-04-08 14:55 | PDOC.DSDIS_ITS ---
Date of service: 04/08/24 Time of Service: 14:57 Discharge Plan Disposition Patient Disposition: Home Condition: Good Discharge Details Reason For Visit: left inguinal hernia Attending Provider: Robyn Tenorio Primary Care Provider: Tiffany Baumann Home Meds and New Rx's Prescriptions: New tramadol 50 mg tablet 50 mg PO Q4H PRNQty: 10 0RF Continued cholecalciferol (vitamin D3) 1 tab PO DAILY Rx Instructions: During the winter months omega-3 fatty acids 100 MG tablet,chewable 100 mg PO DAILY Probiotic 1 EACH capsule 1 ea PO DAILY meclizine 25 mg tablet 25 mg PO BID PRNQty: 20 0RF acetaminophen [Mapap Extra Strength] 500 MG tablet 500 mg PO Q6H PRN PRNQty: 100 3RF Discharge Instructions Additional Instructions: HERNIA REPAIR ? POSTOPERATIVE INSTRUCTIONS Patients who have this type of surgery can usually be expected to return to work within two weeks and have minimal amounts of discomfort. ? ACTIVITY: The day of surgery should be spent resting. However, you can be up for short periods of time, I.E., going to the bathroom or kitchen. Avoid lifting or straining. On the day following surgery, you can be up and about as desired. ? LIFTING: Restrict your lifting to no more than five (5) pounds for two weeks after surgery. ??We will decide when you are done with restrictions and when you can return to work, at your follow-up appointment.? No sexual activity for two weeks.? ? DIET: There are no dietary restrictions following surgery. However, you may want to start with small amounts of liquids to avoid nausea the day of surgery. ? INCISION CARE: You will notice purple skin glue closing the incision.? Do not peel this off- it will wear off on its own.? After 24 hours you may shower. The dressing may be replaced for comfort, but is not necessary. ?An ice bag may be applied to the incision for 72 hours following surgery. ? SIGNS OF INFECTION: It is not unusual to have some black and blue discoloration of the skin around the incision. ?It will slowly disappear. If you have any increased redness, drainage, fever (above 100 degrees), please contact your doctor for an examination. ? DISCOMFORT: You may expect to have some mild discomfort at the incision sight. If severe pain develops you should contact your doctor for further instr uctions. ? URINATION: Patients who have surgery occasionally have problems urinating. If you experience problems and are not able to urinate within 6 hours following your surgery, please call your doctor immediately or go to your nearest Emergency Room for evaluation. ? DRIVING: NO driving for three (3) days after surgery, or if you are still taking narcotic pain medication.? ? MEDICATIONS: Alternate Tylenol 1000mg by mouth every 8 hours and Ibuprofen 600mg every 6 hours. ?Make sure you take ibuprofen with food and not on an empty stomach. ?Take the Tylenol and ibuprofen continuously for the first 72hrs- not just when you have pain.? Use the tramadol for breakthrough pain/pain >7.? Use ICE!?? Twenty minutes on, and then off, continuously for the first 72hours. If you are taking narcotic pain medication, follow the instructions on the label and do not drive. Pain medications can make you very constipated. Make sure you are moving your bowels daily. If not, take Miralax or Milk of Magnesia.?? Anesthesia makes you very constipated.? Take a dose of milk of magnesia the morning after surgery. ? REPORT: Unusual swelling, severe pain, unresolved nausea, signs of infection, or difficulty in urination to your surgeon. Follow up in clinic with Dr. Tenorio in 2 weeks.? [phone] Stand Alone Forms: Anesthesia Discharge InstAnes. PauloNerve Block Instructions, Nikki Ayala ([facility]) Referrals: Robyn Tenorio, [OSTEOPATHIC DOCTOR] - 04/28/24 10:30 am Activity:: see above Remove Dressings/Wound Care:: 24 hours Shower/Bathe:: 24 hours Diet:: As Tolerated Discharge Orders Discharge Orders: Discharge Order (Routine); Ordered 04/08/24 Ordered By: Robyn Tenorio DS: Diagnosis Discharge Diagnosis (1) Bladder prolapse: Status: Chronic (2) Intermittent low back pain: Status: Acute (3) Left inguinal hernia: Status: Acute Asessment and Plan: HERNIA REPAIR ? POSTOPERATIVE INSTRUCTIONS Patients who have this type of surgery can usually be expected to return to work within two weeks and have minimal amounts of discomfort. ? ACTIVITY: The day of surgery should be spent resting. However, you can be up for short periods of time, I.E., going to the bathroom or kitchen. Avoid lifting or straining. On the day following surgery, you can be up and about as desired. ? LIFTING: Restrict your lifting to no more than five (5) pounds for two weeks after surgery. ??We will decide when you are done with restrictions and when you can return to work, at your follow-up appointment.? No sexual activity for two weeks.? ? DIET: There are no dietary restrictions following surgery. However, you may want to start with small amounts of liquids to avoid nausea the day of surgery. ? INCISION CARE: You will notice purple skin glue closing the incision.? Do not peel this off- it will wear off on its own.? After 24 hours you may shower. The dressing may be replaced for comfort, but is not necessary. ?An ice bag may be applied to the incision for 72 hours following surgery. ? SIGNS OF INFECTION: It is not unusual to have some black and blue discoloration of the skin around the incision. ?It will slowly disappear. If you have any increased redness, drainage, fever (above 100 degrees), please contact your doctor for an examination. ? DISCOMFORT: You may expect to have some mild discomfort at the incision sight. If severe pain develops you should contact your doctor for further instructions. ? URINATION: Patients who have surgery occasionally have problems urinating. If you experience problems and are not able to urinate within 6 hours following your surgery, please call your doctor immediately or go to your nearest Emergency Room for evaluation. ? DRIVING: NO driving for three (3) days after surgery, or if you are still taking narcotic pain medication.? ? MEDICATIONS: Alternate Tylenol 1000mg by mouth every 8 hours and Ibuprofen 600mg every 6 hours. ?Make sure you take ibuprofen with food and not on an empty stomach. ?Take the Tylenol and ibuprofen continuously for the first 72hrs- not just when you have pain.? Use the tramadol for breakthrough pain/pain >7.? Use ICE!?? Twenty minutes on, and then off, continuously for the first 72hours. If you are taking narcotic pain medication, follow the instructions on the label and do not drive. Pain medications can make you very constipated. Make sure you are moving your bowels daily. If not, take Miralax or Milk of Magnesia.?? Anesthesia makes you very constipated.? Take a dose of milk of magnesia the morning after surgery. ? REPORT: Unusual swelling, severe pain, unresolved nausea, signs of infection, or difficulty in urination to your surgeon. Follow up in clinic with Dr. Tenorio in 2 weeks.? [phone]
[2024-04-08] MEDS: Meclizine 25 MG TAB PO (15:28)
--- NOTE | 2024-04-08 17:40 | PDOC.DSDIS_ITS ---
Date of service: 04/08/24 Time of Service: 17:47 Discharge Plan Disposition Patient Disposition: Home Condition: Good Discharge Details Reason For Visit: left inguinal hernia Attending Provider: Robyn Tenorio Primary Care Provider: Tiffany Baumann Home Meds and New Rx's Prescriptions: New tramadol 50 mg tablet 50 mg PO Q4H PRNQty: 10 0RF Continued cholecalciferol (vitamin D3) 1 tab PO DAILY Rx Instructions: During the winter months omega-3 fatty acids 100 MG tablet,chewable 100 mg PO DAILY Probiotic 1 EACH capsule 1 ea PO DAILY meclizine 25 mg tablet 25 mg PO BID PRNQty: 20 0RF acetaminophen [Mapap Extra Strength] 500 MG tablet 500 mg PO Q6H PRN PRNQty: 100 3RF Discharge Instructions Additional Instructions: HERNIA REPAIR ? POSTOPERATIVE INSTRUCTIONS Patients who have this type of surgery can usually be expected to return to work within two weeks and have minimal amounts of discomfort. ? ACTIVITY: The day of surgery should be spent resting. However, you can be up for short periods of time, I.E., going to the bathroom or kitchen. Avoid lifting or straining. On the day following surgery, you can be up and about as desired. ? LIFTING: Restrict your lifting to no more than five (5) pounds for two weeks after surgery. ??We will decide when you are done with restrictions and when you can return to work, at your follow-up appointment.? No sexual activity for two weeks.? ? DIET: There are no dietary restrictions following surgery. However, you may want to start with small amounts of liquids to avoid nausea the day of surgery. ? INCISION CARE: You will notice purple skin glue closing the incision.? Do not peel this off- it will wear off on its own.? After 24 hours you may shower. The dressing may be replaced for comfort, but is not necessary. ?An ice bag may be applied to the incision for 72 hours following surgery. ? SIGNS OF INFECTION: It is not unusual to have some black and blue discoloration of the skin around the incision. ?It will slowly disappear. If you have any increased redness, drainage, fever (above 100 degrees), please contact your doctor for an examination. ? DISCOMFORT: You may expect to have some mild discomfort at the incision sight. If severe pain develops you should contact your doctor for further instr uctions. ? URINATION: Patients who have surgery occasionally have problems urinating. If you experience problems and are not able to urinate within 6 hours following your surgery, please call your doctor immediately or go to your nearest Emergency Room for evaluation. ? DRIVING: NO driving for three (3) days after surgery, or if you are still taking narcotic pain medication.? ? MEDICATIONS: Alternate Tylenol 1000mg by mouth every 8 hours and Ibuprofen 600mg every 6 hours. ?Make sure you take ibuprofen with food and not on an empty stomach. ?Take the Tylenol and ibuprofen continuously for the first 72hrs- not just when you have pain.? Use the tramadol for breakthrough pain/pain >7.? Use ICE!?? Twenty minutes on, and then off, continuously for the first 72hours. If you are taking narcotic pain medication, follow the instructions on the label and do not drive. Pain medications can make you very constipated. Make sure you are moving your bowels daily. If not, take Miralax or Milk of Magnesia.?? Anesthesia makes you very constipated.? Take a dose of milk of magnesia the morning after surgery. ? REPORT: Unusual swelling, severe pain, unresolved nausea, signs of infection, or difficulty in urination to your surgeon. Follow up in clinic with Dr. Tenorio in 2 weeks.? [phone] Stand Alone Forms: Anesthesia Discharge InstAnes. PauloNerve Block Instructions, Nikki Ayala ([facility]) Referrals: Robyn Tenorio, [OSTEOPATHIC DOCTOR] - 04/28/24 10:30 am Activity:: see above Remove Dressings/Wound Care:: 24 hours Shower/Bathe:: 24 hours Diet:: As Tolerated Discharge Orders Discharge Orders: Discharge Order (Routine); Ordered 04/08/24 Ordered By: Robyn Tenorio DS: Diagnosis Discharge Diagnosis (1) Bladder prolapse: Status: Chronic (2) Intermittent low back pain: Status: Acute (3) Left inguinal hernia: Status: Acute Asessment and Plan: The patient is doing well post-op from their left inguinal open hernia reapir w/ mesh They are tolerating liquids and a snack. The pt is not having any chest pain or SOB.? Their pain is adequately controlled. They have been able to urinate.? Earlier in her postop stay patient had some vertigo and nausea. She did receive some Antivert in the nausea and dizziness have resolved. She does have a history of vertigo. She does not have any photophobia or eye pain or headache. she is able to walk to the bathroom. She does have family that will stay w/ her tonight. Pt was given the opportunity to spend the night and declined. ?HEENT:? no eye pain/drainage/redness/swelling. Mild sore throat. Pupils are equal and reactive. Extra-ocular muscles are intact. ?Cardio- NSR, no chest pain, BP stable- see VS record ?Pulm: no sob or productive cough. No hemoptysis ?Incision- dressing is c/d/i w/ no excessive bleeding or drainage ?I discussed with the patient the findings at the time of surgery and the patient?s progress. ?We reviewed expectations at home; what the patient could expect for recovery time, and in the post-operative period.? We discussed the importance of walking to avoid blood clots and pneumonia.? We discussed and reviewed the patient's post-operative wound care and dressing needs.?? We reviewed their step-stewart pain management plan, Rx called to the pharmacy of their choice.? We reviewed activity and limitations-see discharge instructions. We reviewed warning signs, and when to seek medical attention- see d/c instructions.?? Patient was given a postoperative follow-up appointment. Patient verbalized understanding of their postoperative instructions, how do to take care of themselves and their incision, and the pain management plan. Please see discharge instructions.?
== END 2024-04-08 18:04 | disposition home or self-care (01) ==
PROVIDERS: PCP Nurse Practitioner; Visit Provider Surgery
PROC: (CPT 49505; principal; 2024-04-08 09:30)
DX: K40.90 Unilateral inguinal hernia, without obstruction or gangrene, not specified as recurrent (principal)
CPT/HCPCS: 49505; 76942; C1781; C9290; J0665; J0690; J1100; J2001; J2405; J2704

== ENCOUNTER → 2024-04-28 10:28 | Outpatient (BNVA) | payer MEDICARE, OTHER, SELFPAY | PROVIDERS: PCP Nurse Practitioner; Referring Provider Nurse Practitioner; Visit Provider Surgery | DX: Z48.817 Encounter for surgical aftercare following surgery on the skin and subcutaneous tissue (principal); B37.2 Candidiasis of skin and nail ==